=== PATIENT | female | born 1940 | race Caucasian/White ===

== ENCOUNTER 2018-03-09 16:09 | Emergency (ER) | payer MEDICARE, SELFPAY ==
[2018-03-09 16:10] VITALS: BP 137/68; PULSE 93; RESP 22; TEMP 36.7; O2SAT 99
--- NOTE | 2018-03-09 16:22 | DI.RAD.S_ITS ---
PROCEDURE: XR CHEST 1V INDICATIONS: chest pain TECHNIQUE: One view of the chest was acquired. COMPARISON: [facility], , CHEST 1 VIEW, 11/30/2016, 10:54. FINDINGS: Surgical changes and devices: None. Lungs and pleura: No pleural effusions or pneumothorax. Lungs are clear. Mediastinum: Mediastinal contours appear normal. Heart size is normal. Bones and chest wall: No suspicious bony lesions. Overlying soft tissues appear unremarkable. 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 IMPRESSION: No acute cardiopulmonary disease. Dictated by: Tono Chapa M.D. on 03/09/2018 at 16:50 Approved by: Tono Chapa M.D. on 03/09/2018 at 16:51
[2018-03-09 16:30] LABS: Add Manual Diff / Slide Review NO; Eosinophils Percent Auto 1.4 % (2-4); Hematocrit 38.7 % (36-46); Hemoglobin 12.9 g/dL (12.0-16.0); Mean Corpuscular HGB Conc 33.2 % (30-36); Mean Corpuscular Hemoglobin 32.1 PG (26-34); Mean Corpuscular Volume 96.6 fL (80-100); Monocytes Percent Auto 11.1 % (3-14); Neutrophils Absolute Auto 3600 /uL (3000-5900); Neutrophils Percent Auto 57.5 % (50-75); Platelet Count 200 X10^3/uL (150-400); Red Blood Cell Count 4.01 X10^6/uL (4.0-5.2); Red Cell Distribution Width 13.7 % (11.6-14.8); White Blood Cell Count 6.2 X10^3/uL (4.5-11.0)
[2018-03-09 16:37] LABS: Prothrombin Time 10.7 SECONDS (10.1-12.7)
[2018-03-09 16:40] LABS: PTT Partial Thromboplastin Tim 31 SECONDS (26.4-36.2)
[2018-03-09 16:41] LABS: Alanine Aminotransferase 30 IU/L (9-52); Albumin 4.2 g/dL (3.5-5.0); Albumin Globulin Ratio 1.3 (1.0-2.8); Alkaline Phosphatase 79 U/L (38-126); Aspartate Aminotransferase 28 IU/L (14-36); BUN Creatinine Ratio 43.3 (6-22); Bilirubin Total 0.4 mg/dL (0.2-1.3); Blood Urea Nitrogen 26 mg/dL (7-17); Calcium 9.4 mg/dL (8.4-10.2); Carbon Dioxide 27 mmol/L (22-32); Chloride 105 mmol/L (98-107); Creatine Kinase 51 U/L (30-135); Estimated Glomerular Filt Rate > 60.0 mL/min (>60); Globulin 3.2 g/dL (1.7-4.1); Glucose 125 mg/dL (80-110); HEMOLYSIS 19 (0-50); Lipase 194 U/L (23-300); Potassium 3.9 mmol/L (3.4-5.1); Sodium 144 mmol/L (137-145); Total Protein 7.4 g/dL (6.3-8.2)
[2018-03-09 16:57] LABS: Troponin I < 0.012 ng/mL (0.01-0.034)
[2018-03-09 17:02] VITALS: BP 137/68; PULSE 85; RESP 16; O2SAT 100
--- NOTE | 2018-03-09 17:22 | ED.CHESTPAIN ---
HPI - Chest Pain <ANTHONY Beyer - Last Filed: 03/09/18 22:29> General Chief Complaint: Chest Pain Stated Complaint: LEFT SHIDE SHOULDER PAIN TOWARS BACK GOT SWEATY Time Seen by Provider: 03/09/18 17:22 History of Present Illness HPI narrative: 77-year-old female here for complaint of having left-sided chest pain that radiates into her left shoulder over the past several days. She reports that the pain has been on and off. She reports no stressors for the pain. She denies any relievers of the pain. She is able to move her left arm without any complication and without causing pain. She denies any shortness of breath. She denies any fevers although she did state she had. She felt like she had a hot flash earlier today. No nausea or vomiting. He denies any trauma to the chest. She denies any do any strenuous activity. Patient is ambulatory into the emergency room. MD complaint: chest pain Onset (ago): day(s) Related Data Home Medications Medication Instructions Recorded Confirmed aspirin 81 mg PO Q DAY #0 07/10/11 03/09/18 cholecalciferol (vitamin D3) 2,000 unit PO DAILY #0 07/10/11 03/09/18 [Vitamin D3] fexofenadine-pseudoephedrine 1 tab PO Q DAY #0 07/10/11 03/09/18 [Senia-D 24 Hour] omeprazole 20 mg PO Q DAY #0 07/10/11 03/09/18 Women's One Daily 1 tab PO DAILY 03/09/18 03/09/18 vit C,E-Mj-uhgfa-lutein-zeaxan 2 cap PO BEDTIME 03/09/18 03/09/18 [PreserVision AREDS 2] Previous Rx's Medication Instructions Recorded metoprolol succinate [Toprol XL] 25 mg PO QDAY #90 tab 01/07/18 Allergies Allergy/AdvReac Type Severity Reaction Status Date / Time No Known Drug Allergies Allergy Verified 03/09/18 16:21 Review of Systems <ANTHONY Beyer - Last Filed: 03/09/18 22:29> Constitutional Denies chills, Denies fatigue, Denies fever(s), Denies lethargy and Denies weakness Eyes Denies change in vision, Denies eye discharge, Denies irritation and Denies loss of vision ENT Ears, Nose, Mouth, and Throat: Denies change in voice, Denies neck pain and Denies sore throat Cardiovascular Reports chest pain, Denies dyspnea and Denies dyspnea on exertion Respiratory Denies cough, Denies dyspnea, Denies dyspnea on exertion and Denies wheezing Gastrointestinal Gastrointestinal: Denies abdominal pain, Denies change in bowel habits, Denies diarrhea, Denies nausea and Denies vomiting Genitourinary Denies hematuria, Denies flank pain, Denies urinary incontinence and Denies urinary urgency Musculoskeletal Denies neck pain Integumentary/Breasts Denies pruritus, Denies erythema, Denies rash and Denies wounds Neurologic Denies confusion, Denies loss of vision and Denies weakness Psychiatric Denies anxiety, Denies confusion, Denies depression, Denies homicidal ideation and Denies suicidal ideation Endocrine Denies fatigue and Denies flushing Allergic/Immunologic Denies wheezing Exam <ANTHONY Beyer - Last Filed: 03/09/18 22:29> Initial Vital Signs Initial Vital Signs: Vital Signs Temperature 98.1 F 03/09/18 16:10 Pulse Rate 93 H 03/09/18 16:10 Respiratory Rate 22 03/09/18 16:10 Blood Pressure 137/68 H 03/09/18 16:10 Pulse Oximetry 99 03/09/18 16:10 Const General: cooperative and well developed Nutritional Appearance: well nourished Orientation: alert, awake, oriented x3 and not confused [facility] Mouth: oral mucosae normal and moist mucous membranes Eyes General: appearance normal, both eyes and all related structures Eyelids: eyelids normal Conjunctivae: conjunctivae normal Sclera: sclerae normal Pupils: PERRL EOM: EOM intact bilaterally Neck Neck: normal visual inspection, trachea midline, No lymphadenopathy, No midline deformity and No JVD Lymphatic: No lymphedema Chest Chest: normal inspection of the chest Resp Effort & Inspection: normal respiratory effort, able to speak in complete sentences, no respiratory distress and no use of accessory muscles Auscultation: clear to auscultation bilaterally, no rales, no rhonchi and no wheezes Cardio Rate: regular rate Rhythm: regular rhythm Heart Sounds: no click, no gallops, no murmurs and no rubs Pulses: normal peripheral pulses Skin General: no rashes or lesions noted, No jaundice and No petechiae <Rome Oswald MD - Last Filed: 03/12/18 05:45> Initial Vital Signs Initial Vital Signs: Vital Signs Temperature 98.1 F 03/09/18 16:10 Pulse Rate 93 H 03/09/18 16:10 Respiratory Rate 22 03/09/18 16:10 Blood Pressure 137/68 H 03/09/18 16:10 Pulse Oximetry 99 03/09/18 16:10 Scores <ANTHONY Beyer - Last Filed: 03/09/18 22:29> HEART Score Heart Score history: Moderately Suspicious Heart Score EKG: Normal Heart Score Age: > or = 65 years old Heart Score risk factors: 1-2 risk factors Heart Score troponin: < or = to normal limit Heart Score Total: 4 PERC Score Age greater than or equal to 50 years: Yes Heart rate greater than or equal to 100 bpm: No Room Air O2 Sat less than 95%: No Unilateral leg swelling: No Recent trauma or surgery: No Hemoptysis: No Prior PE or DVT: No Hormone Use: No Total PERC Score: 1 Wells' Criteria for PE Clinical signs and symptoms of PE: No PE is #1 Dx or equally likely: No Heart rate > 100: No Immobilization at least 3 days or surg in previous 4 weeks: No History of PE or DVT: No Hemoptysis: No Malignancy w/Treatment within 6 months or palliative: No Wells' PE Score total: 0 Course <ANTHONY Beyer - Last Filed: 03/09/18 22:29> Orders Ordered: ED Orders 03/09/18 16:20 Complete Blood Count AUTO DIFF Stat Comprehensive Metabolic Panel Stat Lipase Stat Partial Thromboplastin Time Stat Prothrombin Time INR Stat Troponin with CK Cardiac Panel Stat 03/09/18 16:22 XR chest 1V Stat EKG-12 Lead Stat 03/09/18 17:34 CT angio chest PE protocol Stat 03/09/18 18:27 Troponin with CK Cardiac Panel Stat Vital Signs - 8 hr 03/09/18 16:10 03/09/18 17:02 03/09/18 19:47 Temperature 98.1 F Pulse Rate 93 H 85 87 Respiratory Rate 22 16 20 Blood Pressure 137/68 H 135/73 H Blood Pressure [Left Arm] 137/68 H Pulse Oximetry 99 100 100 <Rome Oswald MD - Last Filed: 03/12/18 05:45> Orders Ordered: ED Orders 03/09/18 16:20 Complete Blood Count AUTO DIFF Stat Comprehensive Metabolic Panel Stat Lipase Stat Partial Thromboplastin Time Stat Prothrombin Time INR Stat Troponin with CK Cardiac Panel Stat 03/09/18 16:22 XR chest 1V Stat EKG-12 Lead Stat 03/09/18 17:34 CT angio chest PE protocol Stat 03/09/18 18:27 Troponin with CK Cardiac Panel Stat Vital Signs - 8 hr 03/09/18 16:10 03/09/18 17:02 03/09/18 19:47 Temperature 98.1 F Pulse Rate 93 H 85 87 Respiratory Rate 22 16 20 Blood Pressure 137/68 H 135/73 H Blood Pressure [Left Arm] 137/68 H Pulse Oximetry 99 100 100 MDM - Chest Pain <ANTHONY Beyer - Last Filed: 03/09/18 22:29> Lab Data Result diagrams: 03/09/18 16:20 03/09/18 16:20 Lab Results 03/09/18 03/09/18 03/09/18 Range/Units 16:20 16:20 16:20 WBC 6.2 (4.5-11.0) X10^3/uL RBC 4.01 (4.0-5.2) X10^6/uL Hgb 12.9 (12.0-16.0) g/dL Hct 38.7 (36-46) % MCV 96.6 (80-100) fL MCH 32.1 (26-34) PG MCHC 33.2 (30-36) % RDW 13.7 (11.6-14.8) % Plt Count 200 (150-400) X10^3/uL Neut % (Auto) 57.5 (50-75) % Lymph % (Auto) 29.0 (25-40) % [place] % (Auto) 11.1 (3-14) % Eos % (Auto) 1.4 L (2-4) % Baso % (Auto) 1.0 (0-2) % Neut # (Auto) 3600 (5834-7145) /uL PT 10.7 (10.1-12.7) SECONDS INR 1.0 (0.9-1.3) APTT 31 (26.4-36.2) SECONDS Sodium 144 (137-145) mmol/L Potassium 3.9 (3.4-5.1) mmol/L Chloride 105 (98-107) mmol/L Carbon Dioxide 27 (22-32) mmol/L BUN 26 H (7-17) mg/dL Creatinine 0.60 (0.52-1.04) mg/dL Estimated GFR > 60.0 (>60) mL/min BUN/Creatinine Ratio 43.3 H (6-22) Glucose 125 H (80-110) mg/dL Calcium 9.4 (8.4-10.2) mg/dL Total Bilirubin 0.4 (0.2-1.3) mg/dL AST 28 (14-36) IU/L ALT 30 (9-52) IU/L Alkaline Phosphatase 79 (38-126) U/L Total Creatine Kinase 51 (30-135) U/L Troponin I < 0.012 (0.01-0.034) ng/mL Total Protein 7.4 (6.3-8.2) g/dL Albumin 4.2 (3.5-5.0) g/dL Globulin 3.2 (1.7-4.1) g/dL Albumin/Globulin Ratio 1.3 (1.0-2.8) Lipase 194 (23-300) U/L /18/18 Range/Units 18:27 WBC (4.5-11.0) X10^3/uL RBC (4.0-5.2) X10^6/uL Hgb (12.0-16.0) g/dL Hct (36-46) % MCV (80-100) fL MCH (26-34) PG MCHC (30-36) % RDW (11.6-14.8) % Plt Count (150-400) X10^3/uL Neut % (Auto) (50-75) % Lymph % (Auto) (25-40) % [place] % (Auto) (3-14) % Eos % (Auto) (2-4) % Baso % (Auto) (0-2) % Neut # (Auto) (1077-7259) /uL PT (10.1-12.7) SECONDS INR (0.9-1.3) APTT (26.4-36.2) SECONDS Sodium (137-145) mmol/L Potassium (3.4-5.1) mmol/L Chloride (98-107) mmol/L Carbon Dioxide (22-32) mmol/L BUN (7-17) mg/dL Creatinine (0.52-1.04) mg/dL Estimated GFR (>60) mL/min BUN/Creatinine Ratio (6-22) Glucose (80-110) mg/dL Calcium (8.4-10.2) mg/dL Total Bilirubin (0.2-1.3) mg/dL AST (14-36) IU/L ALT (9-52) IU/L Alkaline Phosphatase (38-126) U/L Total Creatine Kinase 41 (30-135) U/L Troponin I < 0.012 (0.01-0.034) ng/mL Total Protein (6.3-8.2) g/dL Albumin (3.5-5.0) g/dL Globulin (1.7-4.1) g/dL Albumin/Globulin Ratio (1.0-2.8) Lipase (23-300) U/L Imaging Data Chest x-ray: Radiologist's impression: PROCEDURE: XR CHEST 1V INDICATIONS: chest pain TECHNIQUE: One view of the chest was acquired. COMPARISON: [facility], CR, CHEST 1 VIEW, 11/30/2016, 10:54. FINDINGS: Surgical changes and devices: None. Lungs and pleura: No pleural effusions or pneumothorax. Lungs are clear. Mediastinum: Mediastinal contours appear normal. Heart size is normal. Bones and chest wall: No suspicious bony lesions. Overlying soft tissues appear unremarkable. 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 IMPRESSION: No acute cardiopulmonary disease. Dictated by: Tono Chapa M.D. on 03/09/2018 at 16:50 Approved by: Tono Chapa M.D. on 03/09/2018 at 16:51 CT scan - chest: Radiologist's impression: PROCEDURE: CT ANGIO CHEST PE PROTOCOL INDICATIONS: chest pain TECHNIQUE: After the administration of intravenous contrast, 2 mm thick sections acquired from the pulmonary apices to the posterior costophrenic angles. 3-dimensional maximum intensity projection (MIP) coronal and sagittal reformats were then acquired through the thorax. For radiation dose reduction, the following was used: automated exposure control, adjustment of mA and/or kV according to patient size. COMPARISON: [facility], CT, PE STUDY (CTA CHEST), 06/27/2010, 11:18. [facility], CT, PE STUDY (CTA CHEST), 10/29/2015, 8:00. FINDINGS: Image quality: Excellent. Pulmonary arteries: Pulmonary arteries are normal in size, and demonstrate no intraluminal filling defects to suggest central pulmonary embolism. Lungs and pleura: Lungs are clear. A 3 mm diameter pulmonary nodule is present at the left lung base unchanged from 2010. No pleural effusions or pneumothorax. Central and peripheral airways are patent. Mediastinum: Heart size is normal, without pericardial effusion. No mediastinal or hilar adenopathy. Thoracic aorta is normal in caliber and enhancement. Scattered atheromatous calcifications are present at the thoracic arch. Esophagus is normal in caliber, without hiatal hernia. Bones and chest wall: No suspicious bony lesions. Ribs and thoracic spine appear intact throughout. Thyroid gland is unremarkable. No axillary or supraclavicular adenopathy. Abdomen: Visualized upper abdominal solid organs appear normal in the early arterial phase of enhancement. IMPRESSION: 1. No acute pulmonary embolus. 2. No radiographic findings to explain chest pain. Dictated by: Libby Cruz M.D. on 03/09/2018 at 18:13 Approved by: Libby Cruz M.D. on 03/09/2018 at 18:18 ECG Data Interpretation: EKG shows normal sinus rhythm with no ST elevation or depression. No ectopy. Ventricular rate of 90. Pr interval of 146. QRS duration is 76. QTC of 406 MDM Narrative Medical decision making narrative: Chest x-ray was obtained was negative for any acute findings. Patient's heart rate was at 95 and with metoprolol was concerned that she could be tachycardic so therefore PE protocol CT was obtained and was negative for any acute findings. Two sets of cardiac enzymes were obtained and were unremarkable. Other laboratory work was unremarkable. Signs and symptoms presents as muscle skeletal pain at the chest wall. However differential with other cardiac related issues such as angina are considered so therefore recommend follow up with primary care provider later this week for re-evaluation and discussion and consideration for further treatment options such as stress test and echocardiogram. For any worsening symptoms return to the emergency room. Use [id number] Tylenol Motrin as needed for any discomfort. <Rome Oswald MD - Last Filed: 03/12/18 05:45> Lab Data Lab Results 03/09/18 03/09/18 03/09/18 Range/Units 16:20 16:20 16:20 WBC 6.2 (4.5-11.0) X10^3/uL RBC 4.01 (4.0-5.2) X10^6/uL Hgb 12.9 (12.0-16.0) g/dL Hct 38.7 (36-46) % MCV 96.6 (80-100) fL MCH 32.1 (26-34) PG MCHC 33.2 (30-36) % RDW 13.7 (11.6-14.8) % Plt Count 200 (150-400) X10^3/uL Neut % (Auto) 57.5 (50-75) % Lymph % (Auto) 29.0 (25-40) % [place] % (Auto) 11.1 (3-14) % Eos % (Auto) 1.4 L (2-4) % Baso % (Auto) 1.0 (0-2) % Neut # (Auto) 3600 (7476-7653) /uL PT 10.7 (10.1-12.7) SECONDS INR 1.0 (0.9-1.3) APTT 31 (26.4-36.2) SECONDS Sodium 144 (137-145) mmol/L Potassium 3.9 (3.4-5.1) mmol/L Chloride 105 (98-107) mmol/L Carbon Dioxide 27 (22-32) mmol/L BUN 26 H (7-17) mg/dL Creatinine 0.60 (0.52-1.04) mg/dL Estimated GFR > 60.0 (>60) mL/min BUN/Creatinine Ratio 43.3 H (6-22) Glucose 125 H (80-110) mg/dL Calcium 9.4 (8.4-10.2) mg/dL Total Bilirubin 0.4 (0.2-1.3) mg/dL AST 28 (14-36) IU/L ALT 30 (9-52) IU/L Alkaline Phosphatase 79 (38-126) U/L Total Creatine Kinase 51 (30-135) U/L Troponin I < 0.012 (0.01-0.034) ng/mL Total Protein 7.4 (6.3-8.2) g/dL Albumin 4.2 (3.5-5.0) g/dL Globulin 3.2 (1.7-4.1) g/dL Albumin/Globulin Ratio 1.3 (1.0-2.8) Lipase 194 (23-300) U/L 03/09/18 Range/Units 18:27 WBC (4.5-11.0) X10^3/uL RBC (4.0-5.2) X10^6/uL Hgb (12.0-16.0) g/dL Hct (36-46) % MCV (80-100) fL MCH (26-34) PG MCHC (30-36) % RDW (11.6-14.8) % Plt Count (150-400) X10^3/uL Neut % (Auto) (50-75) % Lymph % (Auto) (25-40) % [place] % (Auto) (3-14) % Eos % (Auto) (2-4) % Baso % (Auto) (0-2) % Neut # (Auto) (5204-9488) /uL PT (10.1-12.7) SECONDS INR (0.9-1.3) APTT (26.4-36.2) SECONDS Sodium (137-145) mmol/L Potassium (3.4-5.1) mmol/L Chloride (98-107) mmol/L Carbon Dioxide (22-32) mmol/L BUN (7-17) mg/dL Creatinine (0.52-1.04) mg/dL Estimated GFR (>60) mL/min BUN/Creatinine Ratio (6-22) Glucose (80-110) mg/dL Calcium (8.4-10.2) mg/dL Total Bilirubin (0.2-1.3) mg/dL AST (14-36) IU/L ALT (9-52) IU/L Alkaline Phosphatase (38-126) U/L Total Creatine Kinase 41 (30-135) U/L Troponin I < 0.012 (0.01-0.034) ng/mL Total Protein (6.3-8.2) g/dL Albumin (3.5-5.0) g/dL Globulin (1.7-4.1) g/dL Albumin/Globulin Ratio (1.0-2.8) Lipase (23-300) U/L Discharge Plan Departure Patient Disposition: Home, Self-Care Clinical Impression: Chest pain Discharge Date/Time: 03/09/18 19:48 Interventions: ED Discharge Assessment Last Done: 03/09/18 19:47 Instructions: DI for Chest Pain Activity Restrictions/Additional Instructions: Laboratory results and imaging today were unremarkable. Signs and symptoms presents as muscle skeletal chest wall pain. He has [id number] Tylenol or Motrin as needed for any discomfort. Follow up with her primary care provider later this week for discussion of further evaluation to ensure it is not heart related such as stress test and/or echocardiogram. For any worsening symptoms return to the emergency room. Prescriptions: No Action omeprazole 20 MG capsule,delayed release(DR/EC) 20 mg PO Q DAY Qty: 0 RF: 0 fexofenadine-pseudoephedrine [Senia-D 24 Hour] 180-240 mg Tablet Extended Release 24 Hr 1 tab PO Q DAY Qty: 0 RF: 0 aspirin 81 mg Tablet,Delayed Release (Dr/Ec) 81 mg PO Q DAY Qty: 0 RF: 0 cholecalciferol (vitamin D3) [Vitamin D3] 2,000 unit Capsule 2,000 unit PO DAILY Qty: 0 RF: 0 metoprolol succinate [Toprol XL] 25 MG tablet extended release 24 hr 25 mg PO QDAY Qty: 90 RF: 3 vit C,P-Qy-mbisn-lutein-zeaxan [PreserVision AREDS 2] 157-392-05-1 oc-sqje-nj-mg Capsule 2 cap PO BEDTIME RF: 0 Women's One Daily 1 tab PO DAILY RF: 0 Referrals: Mary Haas MD [Primary Care Provider] - <Rome Oswald MD - Last Filed: 03/12/18 05:45> Cosign ED Attending Cosignature Attestation: The PA/TANNING [employer] functioned independently for the care of this pt, I was available, but not asked to participate in care. I am unable to determine appropriateness of management without personally examining the pt.
--- NOTE | 2018-03-09 17:26 | ED_ITS ---
HPI - Chest Pain <ANTHONY Beyer - Last Filed: 03/09/18 22:29> General Chief Complaint: Chest Pain Stated Complaint: LEFT SHIDE SHOULDER PAIN TOWARS BACK GOT SWEATY Time Seen by Provider: 03/09/18 17:22 History of Present Illness HPI narrative: 77-year-old female here for complaint of having left-sided chest pain that radiates into her left shoulder over the past several days. She reports that the pain has been on and off. She reports no stressors for the pain. She denies any relievers of the pain. She is able to move her left arm without any complication and without causing pain. She denies any shortness of breath. She denies any fevers although she did state she had. She felt like she had a hot flash earlier today. No nausea or vomiting. He denies any trauma to the chest. She denies any do any strenuous activity. Patient is ambulatory into the emergency room. MD complaint: chest pain Onset (ago): day(s) Related Data Home Medications Medication Instructions Recorded Confirmed aspirin 81 mg PO Q DAY #0 07/10/11 03/09/18 cholecalciferol (vitamin D3) 2,000 unit PO DAILY #0 07/10/11 03/09/18 [Vitamin D3] fexofenadine-pseudoephedrine 1 tab PO Q DAY #0 07/10/11 03/09/18 [Senia-D 24 Hour] omeprazole 20 mg PO Q DAY #0 07/10/11 03/09/18 Women's One Daily 1 tab PO DAILY 03/09/18 03/09/18 vit C,S-Jw-jkjbu-lutein-zeaxan 2 cap PO BEDTIME 03/09/18 03/09/18 [PreserVision AREDS 2] Previous Rx's Medication Instructions Recorded metoprolol succinate [Toprol XL] 25 mg PO QDAY #90 tab 01/07/18 Allergies Allergy/AdvReac Type Severity Reaction Status Date / Time No Known Drug Allergies Allergy Verified 03/09/18 16:21 Review of Systems <ANTHONY Beyer - Last Filed: 03/09/18 22:29> Constitutional Denies chills, Denies fatigue, Denies fever(s), Denies lethargy and Denies weakness Eyes Denies change in vision, Denies eye discharge, Denies irritation and Denies loss of vision ENT Ears, Nose, Mouth, and Throat: Denies change in voice, Denies neck pain and Denies sore throat Cardiovascular Reports chest pain, Denies dyspnea and Denies dyspnea on exertion Respiratory Denies cough, Denies dyspnea, Denies dyspnea on exertion and Denies wheezing Gastrointestinal Gastrointestinal: Denies abdominal pain, Denies change in bowel habits, Denies diarrhea, Denies nausea and Denies vomiting Genitourinary Denies hematuria, Denies flank pain, Denies urinary incontinence and Denies urinary urgency Musculoskeletal Denies neck pain Integumentary/Breasts Denies pruritus, Denies erythema, Denies rash and Denies wounds Neurologic Denies confusion, Denies loss of vision and Denies weakness Psychiatric Denies anxiety, Denies confusion, Denies depression, Denies homicidal ideation and Denies suicidal ideation Endocrine Denies fatigue and Denies flushing Allergic/Immunologic Denies wheezing Exam <ANTHONY Beyer - Last Filed: 03/09/18 22:29> Initial Vital Signs Initial Vital Signs: Vital Signs Temperature 98.1 F 03/09/18 16:10 Pulse Rate 93 H 03/09/18 16:10 Respiratory Rate 22 03/09/18 16:10 Blood Pressure 137/68 H 03/09/18 16:10 Pulse Oximetry 99 03/09/18 16:10 Const General: cooperative and well developed Nutritional Appearance: well nourished Orientation: alert, awake, oriented x3 and not confused [facility] Mouth: oral mucosae normal and moist mucous membranes Eyes General: appearance normal, both eyes and all related structures Eyelids: eyelids normal Conjunctivae: conjunctivae normal Sclera: sclerae normal Pupils: PERRL EOM: EOM intact bilaterally Neck Neck: normal visual inspection, trachea midline, No lymphadenopathy, No midline deformity and No JVD Lymphatic: No lymphedema Chest Chest: normal inspection of the chest Resp Effort & Inspection: normal respiratory effort, able to speak in complete sentences, no respiratory distress and no use of accessory muscles Auscultation: clear to auscultation bilaterally, no rales, no rhonchi and no wheezes Cardio Rate: regular rate Rhythm: regular rhythm Heart Sounds: no click, no gallops, no murmurs and no rubs Pulses: normal peripheral pulses Skin General: no rashes or lesions noted, No jaundice and No petechiae <Rome Oswald MD - Last Filed: 03/12/18 05:45> Initial Vital Signs Initial Vital Signs: Vital Signs Temperature 98.1 F 03/09/18 16:10 Pulse Rate 93 H 03/09/18 16:10 Respiratory Rate 22 03/09/18 16:10 Blood Pressure 137/68 H 03/09/18 16:10 Pulse Oximetry 99 03/09/18 16:10 Scores <ANTHONY Beyer - Last Filed: 03/09/18 22:29> HEART Score Heart Score history: Moderately Suspicious Heart Score EKG: Normal Heart Score Age: > or = 65 years old Heart Score risk factors: 1-2 risk factors Heart Score troponin: < or = to normal limit Heart Score Total: 4 PERC Score Age greater than or equal to 50 years: Yes Heart rate greater than or equal to 100 bpm: No Room Air O2 Sat less than 95%: No Unilateral leg swelling: No Recent trauma or surgery: No Hemoptysis: No Prior PE or DVT: No Hormone Use: No Total PERC Score: 1 Wells' Criteria for PE Clinical signs and symptoms of PE: No PE is #1 Dx or equally likely: No Heart rate > 100: No Immobilization at least 3 days or surg in previous 4 weeks: No History of PE or DVT: No Hemoptysis: No Malignancy w/Treatment within 6 months or palliative: No Wells' PE Score total: 0 Course <ANTHONY Beyer - Last Filed: 03/09/18 22:29> Orders Ordered: ED Orders 03/09/18 16:20 Complete Blood Count AUTO DIFF Stat Comprehensive Metabolic Panel Stat Lipase Stat Partial Thromboplastin Time Stat Prothrombin Time INR Stat Troponin with CK Cardiac Panel Stat 03/09/18 16:22 XR chest 1V Stat EKG-12 Lead Stat 03/09/18 17:34 CT angio chest PE protocol Stat 03/09/18 18:27 Troponin with CK Cardiac Panel Stat Vital Signs - 8 hr 03/09/18 16:10 03/09/18 17:02 03/09/18 19:47 Temperature 98.1 F Pulse Rate 93 H 85 87 Respiratory Rate 22 16 20 Blood Pressure 137/68 H 135/73 H Blood Pressure [Left Arm] 137/68 H Pulse Oximetry 99 100 100 <Rome Oswald MD - Last Filed: 03/12/18 05:45> Orders Ordered: ED Orders 03/09/18 16:20 Complete Blood Count AUTO DIFF Stat Comprehensive Metabolic Panel Stat Lipase Stat Partial Thromboplastin Time Stat Prothrombin Time INR Stat Troponin with CK Cardiac Panel Stat 03/09/18 16:22 XR chest 1V Stat EKG-12 Lead Stat 03/09/18 17:34 CT angio chest PE protocol Stat 03/09/18 18:27 Troponin with CK Cardiac Panel Stat Vital Signs - 8 hr 03/09/18 16:10 03/09/18 17:02 03/09/18 19:47 Temperature 98.1 F Pulse Rate 93 H 85 87 Respiratory Rate 22 16 20 Blood Pressure 137/68 H 135/73 H Blood Pressure [Left Arm] 137/68 H Pulse Oximetry 99 100 100 MDM - Chest Pain <ANTHONY Beyer - Last Filed: 03/09/18 22:29> Lab Data Result diagrams: 03/09/18 16:20 03/09/18 16:20 Lab Results 03/09/18 03/09/18 03/09/18 Range/Units 16:20 16:20 16:20 WBC 6.2 (4.5-11.0) X10^3/uL RBC 4.01 (4.0-5.2) X10^6/uL Hgb 12.9 (12.0-16.0) g/dL Hct 38.7 (36-46) % MCV 96.6 (80-100) fL MCH 32.1 (26-34) PG MCHC 33.2 (30-36) % RDW 13.7 (11.6-14.8) % Plt Count 200 (150-400) X10^3/uL Neut % (Auto) 57.5 (50-75) % Lymph % (Auto) 29.0 (25-40) % Norman % (Auto) 11.1 (3-14) % Eos % (Auto) 1.4 L (2-4) % Baso % (Auto) 1.0 (0-2) % Neut # (Auto) 3600 (3506-3356) /uL PT 10.7 (10.1-12.7) SECONDS INR 1.0 (0.9-1.3) APTT 31 (26.4-36.2) SECONDS Sodium 144 (137-145) mmol/L Potassium 3.9 (3.4-5.1) mmol/L Chloride 105 (98-107) mmol/L Carbon Dioxide 27 (22-32) mmol/L BUN 26 H (7-17) mg/dL Creatinine 0.60 (0.52-1.04) mg/dL Estimated GFR > 60.0 (>60) mL/min BUN/Creatinine Ratio 43.3 H (6-22) Glucose 125 H (80-110) mg/dL Calcium 9.4 (8.4-10.2) mg/dL Total Bilirubin 0.4 (0.2-1.3) mg/dL AST 28 (14-36) IU/L ALT 30 (9-52) IU/L Alkaline Phosphatase 79 (38-126) U/L Total Creatine Kinase 51 (30-135) U/L Troponin I < 0.012 (0.01-0.034) ng/mL Total Protein 7.4 (6.3-8.2) g/dL Albumin 4.2 (3.5-5.0) g/dL Globulin 3.2 (1.7-4.1) g/dL Albumin/Globulin Ratio 1.3 (1.0-2.8) Lipase 194 (23-300) U/L /18/18 Range/Units 18:27 WBC (4.5-11.0) X10^3/uL RBC (4.0-5.2) X10^6/uL Hgb (12.0-16.0) g/dL Hct (36-46) % MCV (80-100) fL MCH (26-34) PG MCHC (30-36) % RDW (11.6-14.8) % Plt Count (150-400) X10^3/uL Neut % (Auto) (50-75) % Lymph % (Auto) (25-40) % Norman % (Auto) (3-14) % Eos % (Auto) (2-4) % Baso % (Auto) (0-2) % Neut # (Auto) (3887-2607) /uL PT (10.1-12.7) SECONDS INR (0.9-1.3) APTT (26.4-36.2) SECONDS Sodium (137-145) mmol/L Potassium (3.4-5.1) mmol/L Chloride (98-107) mmol/L Carbon Dioxide (22-32) mmol/L BUN (7-17) mg/dL Creatinine (0.52-1.04) mg/dL Estimated GFR (>60) mL/min BUN/Creatinine Ratio (6-22) Glucose (80-110) mg/dL Calcium (8.4-10.2) mg/dL Total Bilirubin (0.2-1.3) mg/dL AST (14-36) IU/L ALT (9-52) IU/L Alkaline Phosphatase (38-126) U/L Total Creatine Kinase 41 (30-135) U/L Troponin I < 0.012 (0.01-0.034) ng/mL Total Protein (6.3-8.2) g/dL Albumin (3.5-5.0) g/dL Globulin (1.7-4.1) g/dL Albumin/Globulin Ratio (1.0-2.8) Lipase (23-300) U/L Imaging Data Chest x-ray: Radiologist's impression: PROCEDURE: XR CHEST 1V INDICATIONS: chest pain TECHNIQUE: One view of the chest was acquired. COMPARISON: [facility], CR, CHEST 1 VIEW, 11/30/2016, 10:54. FINDINGS: Surgical changes and devices: None. Lungs and pleura: No pleural effusions or pneumothorax. Lungs are clear. Mediastinum: Mediastinal contours appear normal. Heart size is normal. Bones and chest wall: No suspicious bony lesions. Overlying soft tissues appear unremarkable. 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 IMPRESSION: No acute cardiopulmonary disease. Dictated by: Tono Chapa M.D. on 03/09/2018 at 16:50 Approved by: Tono Chapa M.D. on 03/09/2018 at 16:51 CT scan - chest: Radiologist's impression: PROCEDURE: CT ANGIO CHEST PE PROTOCOL INDICATIONS: chest pain TECHNIQUE: After the administration of intravenous contrast, 2 mm thick sections acquired from the pulmonary apices to the posterior costophrenic angles. 3-dimensional maximum intensity projection (MIP) coronal and sagittal reformats were then acquired through the thorax. For radiation dose reduction, the following was used: automated exposure control, adjustment of mA and/or kV according to patient size. COMPARISON: [facility], CT, PE STUDY (CTA CHEST), 06/27/2010, 11:18. [facility], CT, PE STUDY (CTA CHEST), 10/29/2015, 8:00. FINDINGS: Image quality: Excellent. Pulmonary arteries: Pulmonary arteries are normal in size, and demonstrate no intraluminal filling defects to suggest central pulmonary embolism. Lungs and pleura: Lungs are clear. A 3 mm diameter pulmonary nodule is present at the left lung base unchanged from 2010. No pleural effusions or pneumothorax. Central and peripheral airways are patent. Mediastinum: Heart size is normal, without pericardial effusion. No mediastinal or hilar adenopathy. Thoracic aorta is normal in caliber and enhancement. Scattered atheromatous calcifications are present at the thoracic arch. Esophagus is normal in caliber, without hiatal hernia. Bones and chest wall: No suspicious bony lesions. Ribs and thoracic spine appear intact throughout. Thyroid gland is unremarkable. No axillary or supraclavicular adenopathy. Abdomen: Visualized upper abdominal solid organs appear normal in the early arterial phase of enhancement. IMPRESSION: 1. No acute pulmonary embolus. 2. No radiographic findings to explain chest pain. Dictated by: Libby Cruz M.D. on 03/09/2018 at 18:13 Approved by: Libby Cruz M.D. on 03/09/2018 at 18:18 ECG Data Interpretation: EKG shows normal sinus rhythm with no ST elevation or depression. No ectopy. Ventricular rate of 90. Pr interval of 146. QRS duration is 76. QTC of 406 MDM Narrative Medical decision making narrative: Chest x-ray was obtained was negative for any acute findings. Patient's heart rate was at 95 and with metoprolol was concerned that she could be tachycardic so therefore PE protocol CT was obtained and was negative for any acute findings. Two sets of cardiac enzymes were obtained and were unremarkable. Other laboratory work was unremarkable. Signs and symptoms presents as muscle skeletal pain at the chest wall. However differential with other cardiac related issues such as angina are considered so therefore recommend follow up with primary care provider later this week for re- evaluation and discussion and consideration for further treatment options such as stress test and echocardiogram. For any worsening symptoms return to the emergency room. Use [id number] Tylenol Motrin as needed for any discomfort. <Rome Oswald MD - Last Filed: 03/12/18 05:45> Lab Data Lab Results 03/09/18 03/09/18 03/09/18 Range/Units 16:20 16:20 16:20 WBC 6.2 (4.5-11.0) X10^3/uL RBC 4.01 (4.0-5.2) X10^6/uL Hgb 12.9 (12.0-16.0) g/dL Hct 38.7 (36-46) % MCV 96.6 (80-100) fL MCH 32.1 (26-34) PG MCHC 33.2 (30-36) % RDW 13.7 (11.6-14.8) % Plt Count 200 (150-400) X10^3/uL Neut % (Auto) 57.5 (50-75) % Lymph % (Auto) 29.0 (25-40) % Norman % (Auto) 11.1 (3-14) % Eos % (Auto) 1.4 L (2-4) % Baso % (Auto) 1.0 (0-2) % Neut # (Auto) 3600 (2290-5685) /uL PT 10.7 (10.1-12.7) SECONDS INR 1.0 (0.9-1.3) APTT 31 (26.4-36.2) SECONDS Sodium 144 (137-145) mmol/L Potassium 3.9 (3.4-5.1) mmol/L Chloride 105 (98-107) mmol/L Carbon Dioxide 27 (22-32) mmol/L BUN 26 H (7-17) mg/dL Creatinine 0.60 (0.52-1.04) mg/dL Estimated GFR > 60.0 (>60) mL/min BUN/Creatinine Ratio 43.3 H (6-22) Glucose 125 H (80-110) mg/dL Calcium 9.4 (8.4-10.2) mg/dL Total Bilirubin 0.4 (0.2-1.3) mg/dL AST 28 (14-36) IU/L ALT 30 (9-52) IU/L Alkaline Phosphatase 79 (38-126) U/L Total Creatine Kinase 51 (30-135) U/L Troponin I < 0.012 (0.01-0.034) ng/mL Total Protein 7.4 (6.3-8.2) g/dL Albumin 4.2 (3.5-5.0) g/dL Globulin 3.2 (1.7-4.1) g/dL Albumin/Globulin Ratio 1.3 (1.0-2.8) Lipase 194 (23-300) U/L 03/09/18 Range/Units 18:27 WBC (4.5-11.0) X10^3/uL RBC (4.0-5.2) X10^6/uL Hgb (12.0-16.0) g/dL Hct (36-46) % MCV (80-100) fL MCH (26-34) PG MCHC (30-36) % RDW (11.6-14.8) % Plt Count (150-400) X10^3/uL Neut % (Auto) (50-75) % Lymph % (Auto) (25-40) % Norman % (Auto) (3-14) % Eos % (Auto) (2-4) % Baso % (Auto) (0-2) % Neut # (Auto) (4895-8953) /uL PT (10.1-12.7) SECONDS INR (0.9-1.3) APTT (26.4-36.2) SECONDS Sodium (137-145) mmol/L Potassium (3.4-5.1) mmol/L Chloride (98-107) mmol/L Carbon Dioxide (22-32) mmol/L BUN (7-17) mg/dL Creatinine (0.52-1.04) mg/dL Estimated GFR (>60) mL/min BUN/Creatinine Ratio (6-22) Glucose (80-110) mg/dL Calcium (8.4-10.2) mg/dL Total Bilirubin (0.2-1.3) mg/dL AST (14-36) IU/L ALT (9-52) IU/L Alkaline Phosphatase (38-126) U/L Total Creatine Kinase 41 (30-135) U/L Troponin I < 0.012 (0.01-0.034) ng/mL Total Protein (6.3-8.2) g/dL Albumin (3.5-5.0) g/dL Globulin (1.7-4.1) g/dL Albumin/Globulin Ratio (1.0-2.8) Lipase (23-300) U/L Discharge Plan Departure Patient Disposition: Home, Self-Care Clinical Impression: Chest pain Discharge Date/Time: 03/09/18 19:48 Interventions: ED Discharge Assessment Last Done: 03/09/18 19:47 Instructions: DI for Chest Pain Activity Restrictions/Additional Instructions: Laboratory results and imaging today were unremarkable. Signs and symptoms presents as muscle skeletal chest wall pain. He has [id number] Tylenol or Motrin as needed for any discomfort. Follow up with her primary care provider later this week for discussion of further evaluation to ensure it is not heart related such as stress test and/or echocardiogram. For any worsening symptoms return to the emergency room. Prescriptions: No Action omeprazole 20 MG capsule,delayed release(DR/EC) 20 mg PO Q DAY Qty: 0 RF: 0 fexofenadine-pseudoephedrine [Senia-D 24 Hour] 180-240 mg Tablet Extended Release 24 Hr 1 tab PO Q DAY Qty: 0 RF: 0 aspirin 81 mg Tablet,Delayed Release (Dr/Ec) 81 mg PO Q DAY Qty: 0 RF: 0 cholecalciferol (vitamin D3) [Vitamin D3] 2,000 unit Capsule 2,000 unit PO DAILY Qty: 0 RF: 0 metoprolol succinate [Toprol XL] 25 MG tablet extended release 24 hr 25 mg PO QDAY Qty: 90 RF: 3 vit C,T-Ib-esbcc-lutein-zeaxan [PreserVision AREDS 2] 793-015-76-1 mg-unit-mg- mg Capsule 2 cap PO BEDTIME RF: 0 Women's One Daily 1 tab PO DAILY RF: 0 Referrals: Mary Haas MD [Primary Care Provider] - <Rome Oswald MD - Last Filed: 03/12/18 05:45> Cosign ED Attending Cosignature Attestation: The PA/GRINDER CHIPPER functioned independently for the care of this pt, I was available, but not asked to participate in care. I am unable to determine appropriateness of management without personally examining the pt.
--- NOTE | 2018-03-09 17:34 | DI.CT.S_ITS ---
PROCEDURE: CT ANGIO CHEST PE PROTOCOL INDICATIONS: chest pain TECHNIQUE: After the administration of intravenous contrast, 2 mm thick sections acquired from the pulmonary apices to the posterior costophrenic angles. 3-dimensional maximum intensity projection (MIP) coronal and sagittal reformats were then acquired through the thorax. For radiation dose reduction, the following was used: automated exposure control, adjustment of mA and/or kV according to patient size. COMPARISON: [facility], CT, PE STUDY (CTA CHEST), 06/27/2010, 11:18. [facility], CT, PE STUDY (CTA CHEST), 10/29/2015, 8:00. FINDINGS: Image quality: Excellent. Pulmonary arteries: Pulmonary arteries are normal in size, and demonstrate no intraluminal filling defects to suggest central pulmonary embolism. Lungs and pleura: Lungs are clear. A 3 mm diameter pulmonary nodule is present at the left lung base unchanged from 2009. No pleural effusions or pneumothorax. Central and peripheral airways are patent. Mediastinum: Heart size is normal, without pericardial effusion. No mediastinal or hilar adenopathy. Thoracic aorta is normal in caliber and enhancement. Scattered atheromatous calcifications are present at the thoracic arch. Esophagus is normal in caliber, without hiatal hernia. Bones and chest wall: No suspicious bony lesions. Ribs and thoracic spine appear intact throughout. Thyroid gland is unremarkable. No axillary or supraclavicular adenopathy. Abdomen: Visualized upper abdominal solid organs appear normal in the early arterial phase of enhancement. IMPRESSION: 1. No acute pulmonary embolus. 2. No radiographic findings to explain chest pain. Dictated by: Libby Cruz M.D. on 03/09/2018 at 18:13 Approved by: Libby Cruz M.D. on 03/09/2018 at 18:18
[2018-03-09 19:12] LABS: Creatine Kinase 41 U/L (30-135)
[2018-03-09 19:27] LABS: Troponin I < 0.012 ng/mL (0.01-0.034)
[2018-03-09 19:47] VITALS: BP 135/73; PULSE 87; RESP 20; O2SAT 100
== END 2018-03-09 19:48 | disposition home or self-care (01) ==
PROVIDERS: Emergency Medicine; Emergency Provider Nurse Practitioner Family; Family Provider Family Medicine; PCP Family Medicine
DX: R07.89 Other chest pain (principal)
CPT/HCPCS: 36591; 71045; 71275; 80053; 82550; 82553; 83690; 84484; 85025; 85610; 85730; 93005; 93010; 99282; 99285; Q9967

== ENCOUNTER → 2018-11-12 12:54 | Outpatient (CLI) | payer MEDICARE, SELFPAY | PROVIDERS: PCP Student in an Organized Health Care Education/Training Program; Visit Provider Student in an Organized Health Care Education/Training Program | DX: Z13.820 Encounter for screening for osteoporosis (principal); M85.851 Other specified disorders of bone density and structure, right thigh; Z78.0 Asymptomatic menopausal state | CPT/HCPCS: 77080 ==

== ENCOUNTER → 2018-12-11 11:55 | Outpatient (CLI) | payer MEDICARE, SELFPAY ==
--- NOTE | 2018-12-11 | DI.MG.S_ITS ---
BILATERAL DIGITAL SCREENING MAMMOGRAM 3D/2D WITH CAD: 12/11/2018 CLINICAL: Routine screening. Comparison is made to exams dated: 04/18/2017 mammogram, 01/04/2016 mammogram, and 08/26/2014 mammogram - [facility]. There are scattered fibroglandular elements in both breasts. Current study was also evaluated with a Computer Aided Detection (CAD) system. There are grouped calcifications in the right breast at 6 o'clock middle depth. No other significant masses, calcifications, or other findings are seen in either breast. IMPRESSION: INCOMPLETE: NEEDS ADDITIONAL IMAGING EVALUATION The grouped calcifications in the right breast are indeterminate. Additional views with possible ultrasound are recommended. This exam was interpreted at Station ID: [id number]. NOTE: For mammograms, a report in lay terms will be sent to the patient. Approximately 15% of breast malignancies will not be visualized mammographically. In the management of a palpable breast mass, a negative mammogram must not discourage biopsy of a clinically suspicious lesion. Electronically Signed By: Olivier Hua M.D. ecl/:12/11/2018 18:55:36 letter sent: Additional Imaging Needed ACR BI-RADS Category 0: Incomplete [id number]
== END ==
PROVIDERS: PCP Student in an Organized Health Care Education/Training Program; Visit Provider Student in an Organized Health Care Education/Training Program
DX: Z12.31 Encounter for screening mammogram for malignant neoplasm of breast (principal)
CPT/HCPCS: 77063; 77067

== ENCOUNTER → 2018-12-31 13:08 | Outpatient (CLI) | payer MEDICARE, SELFPAY ==
--- NOTE | 2018-12-31 | DI.MG.S_ITS ---
UNILATERAL RIGHT DIGITAL DIAGNOSTIC MAMMOGRAM 3D/2D WITH ADDITIONAL VIEWS: 12/31/2018 CLINICAL: Additional evaluation requested from prior study. Comparison is made to exams dated: 12/11/2018 mammogram, 04/18/2017 mammogram, and 01/04/2016 mammogram - [facility]. There are scattered fibroglandular elements in right breast. There are 0.4 cm grouped punctate round calcifications in the right breast at 6 o'clock middle depth. These are seen in additional views. There is a possible associated oval equal density asymmetry associated with these calcifications. No other significant masses or calcifications are seen in the breast. IMPRESSION: INCOMPLETE: NEEDS ADDITIONAL IMAGING EVALUATION The 0.4 cm grouped punctate round calcifications in the right breast with possible associated oval asymmetry are indeterminate. An ultrasound is recommended which will immediately follow this study. This exam was interpreted at Station ID: [id number]. NOTE: For mammograms, a report in lay terms will be sent to the patient. Approximately 15% of breast malignancies will not be visualized mammographically. In the management of a palpable breast mass, a negative mammogram must not discourage biopsy of a clinically suspicious lesion. Electronically Signed By: Jason Wiggins M.D. aty/:12/31/2018 14:14:03 ACR BI-RADS Category 0: Incomplete [id number]
--- NOTE | 2018-12-31 13:10 | DI.US.S_ITS ---
ULTRASOUND OF RIGHT BREAST: 12/31/2018 CLINICAL: Patient returns today to evaluate a density in the right breast. Comparison is made to exams dated: 12/31/2018 mammogram, 12/11/2018 mammogram, 04/18/2017 mammogram, 01/04/2016 mammogram, 08/26/2014 mammogram, and 06/07/2013 mammogram - [facility]. Color flow and Doppler ultrasound of the right breast were performed. Vaz scale images of the real-time examination were reviewed. There is 0.3 cm x 0.2 cm x 0.3 cm wider than tall oval mass with a circumscribed margin in the right breast at 6 o'clock middle depth 2 cm from the nipple. This correlates with mammography findings. There are internal calcifications as noted on comparison mammogram. IMPRESSION: PROBABLY BENIGN The 0.3 cm x 0.2 cm x 0.3 cm wider than tall oval mass in the right breast is probably benign. A follow-up mammogram in 6 months is recommended to demonstrate stability. Findings and recommendations were discussed with the patient during today's visit. This exam was interpreted at Station ID: [id number]. Electronically Signed By: Jason Wiggins M.D. aty/:01/01/2019 21:54:48 letter sent: Followup Recommended Ultrasound BI-RADS: 3 Probably benign
== END ==
PROVIDERS: PCP Student in an Organized Health Care Education/Training Program; Visit Provider Student in an Organized Health Care Education/Training Program
DX: R92.8 Other abnormal and inconclusive findings on diagnostic imaging of breast (principal); R92.1 Mammographic calcification found on diagnostic imaging of breast; N63.10 Unspecified lump in the right breast, unspecified quadrant
CPT/HCPCS: 76642; 77065; G0279

== ENCOUNTER → 2019-06-28 12:41 | Outpatient (CLI) | payer MEDICARE, SELFPAY ==
--- NOTE | 2019-06-28 12:44 | DI.MG.S_ITS ---
UNILATERAL RIGHT DIGITAL DIAGNOSTIC MAMMOGRAM 3D/2D SHORT-TERM FOLLOW-UP: 06/28/2019 CLINICAL: Patient returns for a 6 month follow up of the right breast. Comparison is made to exams dated: 12/31/2018 mammogram, 12/11/2018 mammogram, and 04/18/2017 mammogram - [facility]. There are scattered fibroglandular elements in right breast. There are 0.4 cm grouped punctate round calcifications in the right breast at 6 o'clock middle depth. These demonstrate no significant change. No other significant masses or calcifications are seen in the breast. IMPRESSION: PROBABLY BENIGN The 0.4 cm grouped punctate round calcifications in the right breast are stable and probably benign. A follow-up bilateral mammogram in 6 months with additional views of the right breast is recommended to demonstrate continued stability. This exam was interpreted at Station ID: [id number]. NOTE: For mammograms, a report in lay terms will be sent to the patient. Approximately 15% of breast malignancies will not be visualized mammographically. In the management of a palpable breast mass, a negative mammogram must not discourage biopsy of a clinically suspicious lesion. Electronically Signed By: Jason Wiggins M.D. aty/:06/28/2019 13:30:44 letter sent: Followup Recommended ACR BI-RADS Category 3: Probably benign [id number]
== END ==
PROVIDERS: PCP Student in an Organized Health Care Education/Training Program; Visit Provider Student in an Organized Health Care Education/Training Program
DX: R92.8 Other abnormal and inconclusive findings on diagnostic imaging of breast (principal); R92.1 Mammographic calcification found on diagnostic imaging of breast
CPT/HCPCS: 77065; G0279

== ENCOUNTER → 2019-07-26 07:05 | Outpatient (CLI) | payer MEDICARE, SELFPAY ==
[2019-07-26 07:42] LABS: Hemoglobin 12.6 g/dL (12.0-16.0); Mean Corpuscular HGB Conc 33.2 % (30-36); Mean Corpuscular Hemoglobin 32.4 PG (26-34); Mean Corpuscular Volume 97.5 fL (80-100); Platelet Count 212 X10^3/uL (150-400); Red Cell Distribution Width 13.8 % (11.6-14.8); White Blood Cell Count 4.5 X10^3/uL (4.5-11.0)
[2019-07-26 07:55] LABS: BUN Creatinine Ratio 43.3 (6-22); Blood Urea Nitrogen 26 mg/dL (7-17); Calcium 9.3 mg/dL (8.4-10.2); Carbon Dioxide 31 mmol/L (22-32); Chloride 105 mmol/L (98-107); Estimated Glomerular Filt Rate > 60.0 mL/min (>60); Glucose 97 mg/dL (80-110); HEMOLYSIS < 15 (0-50); Potassium 4.4 mmol/L (3.4-5.1); Sodium 143 mmol/L (137-145)
[2019-07-26 08:46] LABS: Vitamin D 25 Hydroxy (D3) 40.8 ng/mL (30.0-100.0)
== END ==
PROVIDERS: PCP Student in an Organized Health Care Education/Training Program; Visit Provider Student in an Organized Health Care Education/Training Program
DX: Z01.810 Encounter for preprocedural cardiovascular examination (principal); I10 Essential (primary) hypertension; Z79.899 Other long term (current) drug therapy
CPT/HCPCS: 36415; 80048; 82306; 85027

== ENCOUNTER → 2020-03-23 09:03 | Outpatient (CLI) | payer MEDICARE, SELFPAY ==
--- NOTE | 2020-03-23 09:06 | DI.MG.S_ITS ---
BILATERAL DIGITAL DIAGNOSTIC MAMMOGRAM 3D/2D SHORT-TERM FOLLOW-UP: 03/23/2020 CLINICAL: Short follow up. Comparison is made to exams dated: 06/28/2019 mammogram, 12/31/2018 ultrasound, 12/31/2018 mammogram, 12/11/2018 mammogram, 04/18/2017 mammogram, and 01/04/2016 mammogram - [facility]. There are scattered fibroglandular elements in both breasts. There is a stable 0.3 cm round mass with a circumscribed margin and grouped punctate round calcifications in the right breast at 6 o'clock middle depth. This correlates with prior ultrasound findings. No other significant masses, calcifications, or other findings are seen in either breast. IMPRESSION: PROBABLY BENIGN Stable 0.3 cm round mass with grouped calcifications in the right breast 6:00 o'clock is probably benign. A follow-up mammogram and possible ultrasound in 6 months is recommended to demonstrate stability. This exam was interpreted at Station ID: [id number]. NOTE: For mammograms, a report in lay terms will be sent to the patient. Approximately 15% of breast malignancies will not be visualized mammographically. In the management of a palpable breast mass, a negative mammogram must not discourage biopsy of a clinically suspicious lesion. Electronically Signed By: Bipin Jean M.D. slc/:03/23/2020 11:04:39 letter sent: Followup Recommended ACR BI-RADS Category 3: Probably benign 3343F
== END ==
PROVIDERS: PCP Student in an Organized Health Care Education/Training Program; Referring Provider Student in an Organized Health Care Education/Training Program; Visit Provider Student in an Organized Health Care Education/Training Program
DX: R92.1 Mammographic calcification found on diagnostic imaging of breast (principal)
CPT/HCPCS: 77066; G0279

== ENCOUNTER → 2020-05-09 15:09 | Outpatient (CLI) | payer MEDICARE, SELFPAY ==
[2020-05-09 15:37] LABS: Add Manual Diff / Slide Review NO; Basophils Absolute Auto 0 /uL (0-100); Basophils Percent Auto 0.5 % (0-2); Eosinophils Absolute Auto 0 /uL (0-450); Eosinophils Percent Auto 0.4 % (2-4); Hematocrit 38.9 % (36-46); Hemoglobin 12.9 g/dL (12.0-16.0); Lymphocytes Absolute Auto 2100 /uL (1100-4500); Lymphocytes Percent Auto 29.8 % (25-40); Mean Corpuscular HGB Conc 33.1 % (30-36); Mean Corpuscular Hemoglobin 31.8 PG (26-34); Mean Corpuscular Volume 96.1 fL (80-100); Monocytes Absolute Auto 600 /uL (0-900); Monocytes Percent Auto 9.4 % (3-14); Neutrophils Absolute Auto 4100 /uL (1500-7000); Neutrophils Percent Auto 59.9 % (50-75); Platelet Count 208 X10^3/uL (150-400); Red Blood Cell Count 4.05 X10^6/uL (4.0-5.2); Red Cell Distribution Width 13.4 % (11.6-14.8); White Blood Cell Count 6.9 X10^3/uL (4.5-11.0)
[2020-05-09 15:49] LABS: Erythrocyte Sedimentation Rate 24 MM/HR (0-20)
[2020-05-09 16:05] LABS: Alanine Aminotransferase 26 IU/L (<35); Albumin 4.4 g/dL (3.5-5.0); Albumin Globulin Ratio 1.4 (1.0-2.8); Alkaline Phosphatase 85 U/L (38-126); Amylase 141 U/L (30-110); Aspartate Aminotransferase 30 IU/L (14-36); BUN Creatinine Ratio 25.6 (6-22); Bilirubin Total 0.7 mg/dL (0.2-1.3); Blood Urea Nitrogen 20 mg/dL (7-17); Calcium 9.5 mg/dL (8.4-10.2); Carbon Dioxide 29 mmol/L (22-32); Chloride 105 mmol/L (98-107); Estimated Glomerular Filt Rate > 60.0 mL/min (>60); Globulin 3.1 g/dL (1.7-4.1); Glucose 98 mg/dL (80-110); HEMOLYSIS < 15 (0-50); Lipase 177 U/L (23-300); Sodium 140 mmol/L (137-145); Total Protein 7.5 g/dL (6.3-8.2)
== END ==
PROVIDERS: PCP Student in an Organized Health Care Education/Training Program; Referring Provider Family Medicine; Visit Provider Family Medicine
DX: R10.9 Unspecified abdominal pain (principal)
CPT/HCPCS: 36415; 80053; 82150; 83690; 85025; 85651

== ENCOUNTER → 2020-05-11 07:39 | Outpatient (CLI) | payer MEDICARE, SELFPAY ==
--- NOTE | 2020-05-11 07:40 | DI.US.S_ITS ---
PROCEDURE: US ABDOMEN COMPLETE INDICATIONS: RUQ PAIN TECHNIQUE: Real-time scanning was performed of the abdominal and retroperitoneal organs, with image documentation. COMPARISON: [facility], US, ABDOMEN COMPLETE, 04/20/2012, 13:36. FINDINGS: Liver: Liver is normal in size and homogeneous in echotexture. Gallbladder: Gallbladder is surgically absent Biliary ducts: Intrahepatic bile ducts are non-dilated. Extrahepatic bile duct caliber measures 10 mm. Normal is 6-7 mm or less in diameter, or 10 mm or less post-cholecystectomy. Pancreas: Visualized portions of the pancreas are sonographically normal. Spleen: Spleen is normal in size and homogeneous in echotexture. Kidneys: Kidneys are normal in size and echotexture. Right kidney measures 10.8 cm long; left kidney measures 10.7 cm long. No hydronephrosis or nephrolithiasis. No solid masses. 3 simple cysts are noted in left kidney measures up to 1.8 x 1.3 x 1.7 cm in size in the upper/mid pole left kidney. Aorta: Visualized aorta is normal in caliber at less than 3 cm. Iliacs: Proximal common iliac arteries are normal in caliber at less than 2.5 cm. IVC: Intrahepatic inferior vena cava is patent. Miscellaneous: No free abdominal fluid. IMPRESSION: 1. Patient is status post cholecystectomy with common bile duct size measures in the upper limits of normal. No intrahepatic biliary ductal dilatation. No evidence of choledocholithiasis. 2. Multiple left renal cysts. No hydronephrosis. 3. Rest of the exam is unremarkable. Dictated by: Praneeth Cabrera M.D. on 05/11/2020 at 8:21 Approved by: Praneeth Cabrera M.D. on 05/11/2020 at 8:36
== END ==
PROVIDERS: PCP Student in an Organized Health Care Education/Training Program; Referring Provider Student in an Organized Health Care Education/Training Program; Visit Provider Family Medicine
DX: R10.11 Right upper quadrant pain (principal); N28.1 Cyst of kidney, acquired; Z90.49 Acquired absence of other specified parts of digestive tract
CPT/HCPCS: 76700

== ENCOUNTER → 2020-10-16 12:36 | Outpatient (CLI) | payer MEDICARE, SELFPAY ==
--- NOTE | 2020-10-16 12:37 | DI.MG.S_ITS ---
UNILATERAL RIGHT DIGITAL DIAGNOSTIC MAMMOGRAM 3D/2D SHORT-TERM FOLLOW-UP: 10/16/2020 CLINICAL: SHORT TERM FOLLOW UP. Comparison is made to exams dated: 03/23/2020 mammogram, 06/28/2019 mammogram, 12/31/2018 mammogram, and 12/11/2018 mammogram - [facility]. There are scattered fibroglandular elements in right breast. There is a stable 0.3 cm oval mass with grouped fine calcifications in the right breast at 6 o'clock middle depth. No other significant masses or calcifications are seen in the breast. IMPRESSION: PROBABLY BENIGN The stable 0.3 cm oval mass in the right breast is probably benign. A follow-up mammogram in 6 months is recommended. A follow-up mammogram in 6 months is recommended to demonstrate 2 year stability. Patient will be due for screening mammography of the contralateral breast at that time. This exam was interpreted at Station ID: [id number]. NOTE: For mammograms, a report in lay terms will be sent to the patient. Approximately 15% of breast malignancies will not be visualized mammographically. In the management of a palpable breast mass, a negative mammogram must not discourage biopsy of a clinically suspicious lesion. Electronically Signed By: Lenin dotson/:10/16/2020 13:19:45 letter sent: Followup Recommended ACR BI-RADS Category 3: Probably benign 3343F
== END ==
PROVIDERS: PCP Student in an Organized Health Care Education/Training Program; Referring Provider Student in an Organized Health Care Education/Training Program; Visit Provider Student in an Organized Health Care Education/Training Program
DX: R92.1 Mammographic calcification found on diagnostic imaging of breast (principal); N63.15 Unspecified lump in the right breast, overlapping quadrants; Z13.820 Encounter for screening for osteoporosis; M85.851 Other specified disorders of bone density and structure, right thigh; Z78.0 Asymptomatic menopausal state; Z91.89 Other specified personal risk factors, not elsewhere classified; Z82.62 Family history of osteoporosis
CPT/HCPCS: 77065; 77080; G0279

== ENCOUNTER → 2020-11-02 07:01 | Outpatient (CLI) | payer MEDICARE, SELFPAY ==
[2020-11-02 08:54] LABS: BUN Creatinine Ratio 34.7 (6-22); Blood Urea Nitrogen 26 mg/dL (7-17); Calcium 9.3 mg/dL (8.4-10.2); Carbon Dioxide 33 mmol/L (22-32); Chloride 105 mmol/L (98-107); Estimated Glomerular Filt Rate > 60.0 mL/min (>60); Glucose 102 mg/dL (80-110); HEMOLYSIS < 15 (0-50); Potassium 3.6 mmol/L (3.4-5.1); Sodium 140 mmol/L (137-145)
== END ==
PROVIDERS: PCP Student in an Organized Health Care Education/Training Program; Referring Provider Student in an Organized Health Care Education/Training Program; Visit Provider Student in an Organized Health Care Education/Training Program
DX: I10 Essential (primary) hypertension (principal); Z79.1 Long term (current) use of non-steroidal anti-inflammatories (NSAID)
CPT/HCPCS: 36415; 80048

== ENCOUNTER → 2020-11-17 16:25 | Outpatient (CLI) | payer MEDICARE, SELFPAY ==
[2020-11-17] MEDS: COVID-19 VACC #1, MRNA(MOD) 100 MCG/0.5 ML VIAL IM (16:28)
== END ==
PROVIDERS: PCP Student in an Organized Health Care Education/Training Program; Visit Provider Internal Medicine
DX: Z23 Encounter for immunization (principal)
CPT/HCPCS: 0011A; 91301

== ENCOUNTER → 2020-12-15 09:58 | Outpatient (CLI) | payer MEDICARE, SELFPAY ==
[2020-12-15] MEDS: COVID-19 VACC #2, MRNA(MOD) 100 MCG/0.5 ML VIAL IM (10:07)
== END ==
PROVIDERS: PCP Student in an Organized Health Care Education/Training Program; Visit Provider Internal Medicine
DX: Z23 Encounter for immunization (principal)
CPT/HCPCS: 0012A; 91301

== ENCOUNTER → 2021-05-17 09:41 | Outpatient (CLI) | payer MEDICARE, SELFPAY ==
--- NOTE | 2021-05-31 08:47 | PM.CARDMON.1 ---
[employer] Report Referral & Results Date Patient Seen: 05/17/21 Requesting provider: Parag Aburto Indication: Tachycardia Duration of monitoring (days): 3 Diary information: There were no patient events to review Data: Minimum heart rate identified was 59 beats per minute at 04:27 on 05/18/2021 Maximum sinus heart rate was 117 beats per minute at 13:18 on 05/17/2021 Maximum overall heart rate was 130 beats per minute at 16:26 on 05/17/2021 during a 6 beat run SVT or some other supraventricular origin Less than 1% of identified beats were ventricular or supraventricular ectopic in origin, which would classify them as rare. 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
== END ==
PROVIDERS: PCP Student in an Organized Health Care Education/Training Program; Referring Provider Student in an Organized Health Care Education/Training Program; Visit Provider Student in an Organized Health Care Education/Training Program
DX: R00.0 Tachycardia, unspecified (principal)
CPT/HCPCS: 93242; 93244

== ENCOUNTER → 2021-05-22 12:38 | Outpatient (CLI) | payer MEDICARE, SELFPAY ==
--- NOTE | 2021-05-22 | DI.MG.S_ITS ---
BILATERAL DIGITAL DIAGNOSTIC MAMMOGRAM 3D/2D: 05/22/2021 CLINICAL: Short term follow up of the right breast. Due for bilateral. Comparison is made to exams dated: 10/16/2020 mammogram, 03/23/2020 mammogram, 06/28/2019 mammogram, and 12/11/2018 mammogram - [facility]. There are scattered fibroglandular elements in both breasts. There is a stable 0.3 cm oval mass with grouped fine calcifications in the right breast at 6 o'clock middle depth. No other significant masses, calcifications, or other findings are seen in either breast. IMPRESSION: INCOMPLETE: NEEDS ADDITIONAL IMAGING EVALUATION There is a stable 0.3 cm oval mass with grouped fine calcifications in the right breast at 6 o'clock middle depth. This finding has demonstrated two years of stability and is consistent with a benign process. However, there is a probably benign oval mass seen at the 6 o'clock position that was noted on prior ultrasound examination of 12/31/2018 that may correlate with the mammographic findings. The patient could not stay for sonographic evaluation and will return as soon as possible for evaluation. If this finding remains stable then it will also have demonstrated two years of stability and the patient may be returned to screening schedule at that time. Findings and recommendations were conveyed to the patient during today's evaluation. This exam was interpreted at Station ID: [id number]. NOTE: For mammograms, a report in lay terms will be sent to the patient. Approximately 15% of breast malignancies will not be visualized mammographically. In the management of a palpable breast mass, a negative mammogram must not discourage biopsy of a clinically suspicious lesion. Electronically Signed By: Jason Wiggins M.D. aty/:05/22/2021 13:46:02 letter sent: Need Ultrasound ACR BI-RADS Category 0: Incomplete [id number]
== END ==
PROVIDERS: PCP Student in an Organized Health Care Education/Training Program; Referring Provider Student in an Organized Health Care Education/Training Program; Visit Provider Student in an Organized Health Care Education/Training Program
DX: R92.8 Other abnormal and inconclusive findings on diagnostic imaging of breast (principal); R92.1 Mammographic calcification found on diagnostic imaging of breast; N60.01 Solitary cyst of right breast; N63.15 Unspecified lump in the right breast, overlapping quadrants
CPT/HCPCS: 77066; G0279

== ENCOUNTER → 2021-05-29 11:13 | Outpatient (CLI) | payer MEDICARE, SELFPAY ==
--- NOTE | 2021-05-29 11:14 | DI.US.S_ITS ---
LIMITED ULTRASOUND OF RIGHT BREAST: 05/29/2021 CLINICAL: Patient returns today to evaluate an asymmetry in the right breast. Comparison is made to exams dated: 05/22/2021 mammogram, 10/16/2020 mammogram, 03/23/2020 mammogram, 06/28/2019 mammogram, 12/31/2018 ultrasound, and 12/31/2018 mammogram - [facility]. Color flow and real-time ultrasound of the right breast 6 o'clock region were performed. Vaz scale images of the real-time examination were reviewed. There is a stable 0.4 cm x 0.4 cm x 0.3 cm oval mass with a circumscribed margin in the right breast at 6 o'clock middle depth 2 cm from the nipple. This correlates with mammography findings. There are related calcifications. Color flow imaging demonstrates that there is no vascularity present. IMPRESSION: BENIGN There is no sonographic evidence of malignancy. Stable 0.4 cm mass in the right breast demonstrates long-term stability and is benign. A 1 year screening mammogram is recommended. Exam findings were conveyed to the patient. This exam was interpreted at Station ID: [id number]. Electronically Signed By: Bipin Jean M.D. slc/:05/29/2021 12:21:26 letter sent: Normal Exam Ultrasound BI-RADS: 2 Benign
== END ==
PROVIDERS: PCP Student in an Organized Health Care Education/Training Program; Referring Provider Student in an Organized Health Care Education/Training Program; Visit Provider Student in an Organized Health Care Education/Training Program
DX: R92.8 Other abnormal and inconclusive findings on diagnostic imaging of breast (principal); D24.1 Benign neoplasm of right breast
CPT/HCPCS: 76642

== ENCOUNTER → 2021-07-20 14:05 | Outpatient (CLI) | payer MEDICARE, SELFPAY ==
[2021-07-20 14:38] LABS: Add Manual Diff / Slide Review NO; Basophils Absolute Auto 0 /uL (0-100); Basophils Percent Auto 0.6 % (0-2); Eosinophils Absolute Auto 100 /uL (0-450); Eosinophils Percent Auto 2.1 % (2-4); Hematocrit 36.5 % (36-46); Hemoglobin 12.1 g/dL (12.0-16.0); Lymphocytes Absolute Auto 1700 /uL (1100-4500); Lymphocytes Percent Auto 27.8 % (25-40); Mean Corpuscular HGB Conc 33.2 % (30-36); Mean Corpuscular Volume 96.5 fL (80-100); Monocytes Absolute Auto 700 /uL (0-900); Monocytes Percent Auto 11.3 % (3-14); Neutrophils Absolute Auto 3600 /uL (1500-7000); Neutrophils Percent Auto 58.2 % (50-75); Platelet Count 255 X10^3/uL (150-400); Red Blood Cell Count 3.78 X10^6/uL (4.0-5.2); Red Cell Distribution Width 13.5 % (11.6-14.8); White Blood Cell Count 6.2 X10^3/uL (4.5-11.0)
[2021-07-20 14:49] LABS: Alanine Aminotransferase 16 IU/L (<35); Albumin 4.1 g/dL (3.5-5.0); Albumin Globulin Ratio 1.2 (1.0-2.8); Alkaline Phosphatase 78 U/L (38-126); Aspartate Aminotransferase 25 IU/L (14-36); BUN Creatinine Ratio 24.4 (6-22); Bilirubin Total 0.3 mg/dL (0.2-1.3); Blood Urea Nitrogen 20 mg/dL (7-17); Calcium 9.6 mg/dL (8.4-10.2); Carbon Dioxide 31 mmol/L (22-32); Chloride 105 mmol/L (98-107); Estimated Glomerular Filt Rate > 60.0 mL/min (>60); Globulin 3.3 g/dL (1.7-4.1); Glucose 100 mg/dL (80-110); HEMOLYSIS < 15 (0-50); Sodium 141 mmol/L (137-145); Total Protein 7.4 g/dL (6.3-8.2)
[2021-07-20 15:19] LABS: Thyroid Stimulating Hormone 0.326 uIU/mL (0.47-4.68)
== END ==
PROVIDERS: PCP Student in an Organized Health Care Education/Training Program; Referring Provider Internal Medicine Cardiovascular Disease; Visit Provider Internal Medicine Cardiovascular Disease
DX: R00.0 Tachycardia, unspecified (principal)
CPT/HCPCS: 36415; 80053; 84443; 85025

== ENCOUNTER → 2021-08-10 14:53 | Outpatient (CLI) | payer MEDICARE, SELFPAY ==
[2021-08-10] MEDS: COVID-19 VACC #3, MRNA(MOD) 50 MCG/0.25 ML VIAL IM (15:04)
== END ==
PROVIDERS: PCP Student in an Organized Health Care Education/Training Program; Visit Provider Internal Medicine
DX: Z23 Encounter for immunization (principal)
CPT/HCPCS: 0013A; 91301

== ENCOUNTER → 2022-02-12 11:37 | Outpatient (CLI) | payer MEDICARE, SELFPAY ==
[2022-02-12 14:20] LABS: TSH w/ Reflex to FT4 0.11 uIU/mL (0.47-4.68)
[2022-02-12 14:45] LABS: Free T4, Direct Thyroxine 1.31 ng/dL (0.78-2.19)
== END ==
PROVIDERS: PCP Student in an Organized Health Care Education/Training Program; Referring Provider Student in an Organized Health Care Education/Training Program; Visit Provider Student in an Organized Health Care Education/Training Program
DX: E05.90 Thyrotoxicosis, unspecified without thyrotoxic crisis or storm (principal)
CPT/HCPCS: 36415; 84439; 84443

== ENCOUNTER → 2022-04-18 09:55 | Outpatient (CLI) | payer MEDICARE, SELFPAY ==
[2022-04-18 12:34] LABS: Free T3, Triiodothyronine Free 2.72 pg/mL (2.77-5.27); Free T4, Direct Thyroxine 1.06 ng/dL (0.78-2.19)
[2022-04-18 12:48] LABS: Thyroid Stimulating Hormone 0.031 uIU/mL (0.47-4.68)
[2022-04-19 08:34] LABS: Thyroid Peroxidase Antibodies 29 IU/mL (0-34)
[2022-04-21 07:24] LABS: Thyroid Stimulating Immunoglob < 0.10 IU/L (0.00-0.55)
== END ==
PROVIDERS: PCP Student in an Organized Health Care Education/Training Program; Referring Provider Student in an Organized Health Care Education/Training Program; Visit Provider Student in an Organized Health Care Education/Training Program
DX: E05.90 Thyrotoxicosis, unspecified without thyrotoxic crisis or storm (principal)
CPT/HCPCS: 36415; 84439; 84443; 84445; 84481; 86376

== ENCOUNTER → 2022-06-03 07:51 | Outpatient (CLI) | payer MEDICARE, SELFPAY ==
--- NOTE | 2022-06-03 | DI.MG.S_ITS ---
BILATERAL DIGITAL SCREENING MAMMOGRAM 3D/2D WITH CAD: 06/03/2022 CLINICAL: Routine screening. Comparison is made to exams dated: 03/23/2020 mammogram, 12/11/2018 mammogram, and 04/18/2017 mammogram - [facility]. There are scattered areas of fibroglandular density in both breasts (category b / 25%-50% glandular tissue). Current study was also evaluated with a Computer Aided Detection (CAD) system. No significant masses, calcifications, or other findings are seen in either breast. There has been no significant interval change. IMPRESSION: NEGATIVE There is no mammographic evidence of malignancy. A 1 year screening mammogram is recommended. Based on the Tyrer Cuzick model (a risk assessment model) the patient's lifetime risk is 0.7% and her 10 year risk is 0.0%. According to the ACR, ACS, and NCCN guidelines, an annual breast MRI exam along with mammogram is recommended if the patient's lifetime risk is 20% or greater. This exam was interpreted at Station ID: [id number]. NOTE: For mammograms, a report in lay terms will be sent to the patient. Approximately 15% of breast malignancies will not be visualized mammographically. In the management of a palpable breast mass, a negative mammogram must not discourage biopsy of a clinically suspicious lesion. Electronically Signed By: Jason hughes/tan:06/03/2022 08:08:44 letter sent: Normal Exam ACR BI-RADS Category 1: Negative 3341F
== END ==
PROVIDERS: PCP Student in an Organized Health Care Education/Training Program; Referring Provider Student in an Organized Health Care Education/Training Program; Visit Provider Student in an Organized Health Care Education/Training Program
DX: Z12.31 Encounter for screening mammogram for malignant neoplasm of breast (principal)
CPT/HCPCS: 77063; 77067

== ENCOUNTER → 2022-08-02 10:15 | Outpatient (CLI) | payer MEDICARE, SELFPAY ==
[2022-08-02 12:05] LABS: Follicle Stimulating Hormone 31.7 mIU/mL; Luteinizing Hormone 7.13 mIU/mL
[2022-08-02 12:12] LABS: Free T3, Triiodothyronine Free 3.27 pg/mL (2.77-5.27); Free T4, Direct Thyroxine 1.51 ng/dL (0.78-2.19); Prolactin 2.3 ng/mL (3.0-18.6)
[2022-08-02 12:51] LABS: Thyroid Stimulating Hormone < 0.015 uIU/mL (0.47-4.68)
== END ==
PROVIDERS: PCP Student in an Organized Health Care Education/Training Program; Referring Provider Student in an Organized Health Care Education/Training Program; Visit Provider Student in an Organized Health Care Education/Training Program
DX: E03.8 Other specified hypothyroidism (principal); E23.7 Disorder of pituitary gland, unspecified
CPT/HCPCS: 36415; 83001; 83002; 84146; 84439; 84443; 84481

== ENCOUNTER → 2023-05-21 11:07 | Outpatient (CLI) | payer MEDICARE, SELFPAY ==
--- NOTE | 2023-05-21 11:08 | DI.RAD.S_ITS ---
PROCEDURE: XR SHOULDER LT MIN 2V INDICATIONS: left shoulder pain, no trauma TECHNIQUE: 3 views of the shoulder were acquired. COMPARISON: None. FINDINGS: Bones: No fractures or dislocations. 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 No suspicious bony lesions. Visualized ribs appear intact. Soft tissues: No suspicious soft tissue calcifications. IMPRESSION: No acute shoulder fracture or dislocation. 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 Dictated by: Praneeth Cabrera M.D. on 05/21/2023 at 12:46 Approved by: Praneeth Cabrera M.D. on 05/21/2023 at 12:46
== END ==
PROVIDERS: PCP Internal Medicine; Referring Provider Internal Medicine; Visit Provider Internal Medicine
DX: M75.82 Other shoulder lesions, left shoulder (principal); M19.012 Primary osteoarthritis, left shoulder
CPT/HCPCS: 73030

== ENCOUNTER → 2023-06-19 12:49 | Outpatient (CLI) | payer MEDICARE, SELFPAY ==
--- NOTE | 2023-06-19 13:00 | DI.CT.S_ITS ---
PROCEDURE: CT HEAD/BRAIN WO CON INDICATIONS: cognitive impairment/dementia TECHNIQUE: Noncontrast 4.5 mm thick angled axial sections acquired from the foramen magnum to the vertex, with coronal and sagittal reformats. For radiation dose reduction, the following was used: automated exposure control, adjustment of mA and/or kV according to patient size. COMPARISON: [facility], CT, HEAD WITHOUT CONTRAST, 11/30/2016, 10:54. FINDINGS: Image quality: Excellent. CSF spaces: Basal cisterns are patent. No extra-axial fluid collections. Ventricles are normal in size and shape. Brain: No midline shift. No intracranial masses or hemorrhage. Vaz-white matter interface is normal. Age-appropriate cerebral and cerebellar volume loss with multifocal white matter chronic ischemic change noted. Atherosclerotic calcification noted associated with cavernous segments of both internal carotid arteries. Skull and face: Calvarium and visualized facial bones are intact, without suspicious lesions. Sinuses: Visualized sinuses and mastoids are clear. IMPRESSION: Atrophy and chronic ischemic change without intracranial hemorrhage or mass effect. Approved by: Gabino Joiner M.D. on 06/19/2023 at 12:43
== END ==
PROVIDERS: Family Provider Internal Medicine; PCP Internal Medicine; Referring Provider Internal Medicine; Visit Provider Internal Medicine
DX: G31.84 Mild cognitive impairment of uncertain or unknown etiology (principal)
CPT/HCPCS: 70450

== ENCOUNTER 2023-06-22 19:49 | Emergency (ER) | payer MEDICARE, SELFPAY ==
[2023-06-22] VITALS (7 sets, daily range): BP systolic 122–165; BP diastolic 57–77; PULSE 87–105; RESP 16–18; TEMP 36.4; O2SAT 96–100; BMI 23.8
--- NOTE | 2023-06-22 20:04 | DI.CT.S_ITS ---
PROCEDURE: CT CERVICAL SPINE WO CON INDICATIONS: Fall. TECHNIQUE: Noncontrast 3 mm thick sections acquired from the skull base to the T4 level. Sagittal and coronal reformats were then constructed. For radiation dose reduction, the following was used: automated exposure control, adjustment of mA and/or kV according to patient size. COMPARISON: None. FINDINGS: Image quality: Good Bones: [id number] degenerative changes, no acute vertebral body height loss. No traumatic subluxation. Soft tissues: Vascular calcifications are present. No prevertebral soft tissue swelling. IMPRESSION: [id number]-[id number] degenerative changes. No acute fracture or traumatic subluxation of the cervical spine. If there is high concern for further derangement, consider MRI evaluation. Dictated by: Cem Sarabia M.D. on 06/22/2023 at 21:02 Approved by: Cem Sarabia M.D. on 06/22/2023 at 21:04
--- NOTE | 2023-06-22 20:04 | DI.RAD.S_ITS ---
PROCEDURE: XR HIP W PEL IF DONE RT 2V INDICATIONS: RT hip pain s/p fall. TECHNIQUE: 2 views of the hip were acquired. COMPARISON: None. FINDINGS: Bones: Mild bilateral degenerative changes of the hips. No displaced fracture or dislocation Soft tissues: Moderate to large fecal loading. No suspicious calcifications. IMPRESSION: Mild bilateral degenerative changes. If there is high concern for occult injury, consider repeat radiography or cross-sectional imaging. Dictated by: Cem Sarabia M.D. on 06/22/2023 at 21:22 Approved by: Cem Sarabia M.D. on 06/22/2023 at 21:23
--- NOTE | 2023-06-22 20:04 | DI.CT.S_ITS ---
PROCEDURE: CT HEAD/BRAIN WO CON INDICATIONS: Fall; right posterior head injury. TECHNIQUE: Noncontrast 4.5 mm thick angled axial sections acquired from the foramen magnum to the vertex, with coronal and sagittal reformats. For radiation dose reduction, the following was used: automated exposure control, adjustment of mA and/or kV according to patient size. COMPARISON: [facility], CT, CT HEAD/BRAIN WO CON, 06/19/2023, 13:00. FINDINGS: Image quality: Excellent CSF spaces: Basal cisterns are patent. Lateral ventricles are symmetric. Volume: Vascular calcifications. 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 Volume loss is present. These findings are [id number] Brain: No intracranial hemorrhage. Vaz-white differentiation is grossly maintained. Craniofacial structures: Right scalp contusion. IMPRESSION: No acute intracranial abnormality. Right scalp contusion is present. Dictated by: Cem Sarabia M.D. on 06/22/2023 at 21:00 Approved by: Cem Sarabia M.D. on 06/22/2023 at 21:02
--- NOTE | 2023-06-22 20:06 | ED_ITS ---
HPI - Fall General Chief Complaint: Fall Stated Complaint: GLF/ hit head and hip Time Seen by Provider: 06/22/23 19:58 Source: patient and family Mode of arrival: Ambulatory History of Present Illness HPI Narrative: Patient is a kvng 83-year-old female history of inappropriate sinus tachycardia on metoprolol, chronic left shoulder pain arthritis presents after a mechanical fall by daughter. Reports that she missed stepping off the curb falling and hitting the right posterior part of her head. Not on antiplatelet or anticoagulation medication. No loss of consciousness. No numbness tingling or weakness. She also ended on her right hip. She is able to ambulate but her hip does hurt. She has chronic left arm pain blood pressure cuff is bothering her. No chest pain or other injury. Daughter reports that she does not fall n ormally. She actually had head CT done last week for early signs cognitive impairment. Related Data Home Medications Medication Instructions Recorded Confirmed cholecalciferol (vitamin D3) 50 2,000 unit PO DAILY ##0 07/10/11 06/09/23 mcg (2,000 unit) capsule (Vitamin D3) fexofenadine-pseudoephedrine ER 1 tab PO Q DAY ##0 07/10/11 06/09/23 180 mg-240 mg tablet,ext.release 24 hr (Senia-D 24 Hour) Women's One Daily 1 tab PO DAILY 03/09/18 06/09/23 digestive enzymes 1 tab PO DAILY 03/10/23 06/09/23 ipratropium bromide 42 mcg (0.06 2 spray intranasal TID 03/10/23 06/09/23 %) nasal spray propylene glycol (PF) 0.6 % eye 1 drp ophthalmic (eye) DAILY 03/10/23 06/09/23 drops (Systane Complete PF) vitamins A,C,V-yxda-lbvbpy 2,148 2 tab PO BID 03/10/23 06/09/23 mcg-113 mg-45 mg-17.4 mg tablet (PreserVision AREDS) hydrocortisone 2.5 % topical cream 1 applic topical BID PRN 05/21/23 06/09/23 CBD Gummies 1 ea PO DAILY 06/09/23 06/09/23 CBD Oil 1 ea topical DAILY PRN 06/09/23 06/09/23 ascorbic acid-vitamin E-biotin 1 tab PO DAILY 06/09/23 06/09/23 [Hair, Skin, Nails with Biotin] sucralfate 1 gram tablet 1 g PO DAILY PRN 06/09/23 06/09/23 Previous Rx's Medication Instructions Recorded omeprazole 40 mg capsule,delayed 40 mg PO Q DAY #90 caps 03/31/20 release celecoxib 200 mg capsule (Celebrex) 200 mg PO DAILY #90 caps 06/09/23 metoprolol succinate 25 mg 25 mg PO BID #180 tabs 06/09/23 tablet,extended release 24 hr ondansetron 4 mg disintegrating 4 mg PO Q8H PRN nausea and 06/22/23 tablet vomiting #20 tabs Allergies Allergy/AdvReac Type Severity Reaction Status Date / Time No Known Drug Allergies Allergy Verified 06/09/23 14:10 Review of Systems Review of Systems ROS Unobtainable: All systems reviewed & are unremarkable except as noted in HPI and below Patient History Medical History Allergic rhinitis Ankle pain (2012) Cataract (2013) Chicken pox (1945) Chronic back pain (1975) Eczematous dermatitis Foot pain (2012) GERD (gastroesophageal reflux disease) (1999) GERD without esophagitis Hayfever (1949) Hemorrhoids (1979) IBS (irritable bowel syndrome) (1998) Inappropriate sinus tachycardia Measles (1946) Medicare annual wellness visit, initial Mild cognitive impairment Mixed hyperlipidemia Mumps (1947) Neck pain (1975) Osteoarthritis (1984) Primary osteoarthritis involving multiple joints Shoulder pain (1984) Tendonitis of left rotator cuff Thyroid function test abnormal Surgical History Anesthesia History of arthroplasty of right knee (2010) Status post cholecystectomy (2013) Status post hysterectomy (1992) Family History Father Congestive heart failure Stroke Grandmother Cancer Sister Pulmonary hypertension Heart disease Lung disease Mother No problems noted. Social History details: (José) Smoking Status: Never smoker Smoking Status: Never smoker alcohol intake frequency: 0-2 drinks per day Substance Use Type: does not use Exam Initial Vital Signs Initial Vital Signs: Vital Signs Temperature 97.6 F 06/22/23 19:50 Pulse Rate 105 H 06/22/23 19:50 Respiratory Rate 16 06/22/23 19:50 Blood Pressure 165/77 H 06/22/23 19:50 Pulse Oximetry 97 06/22/23 19:50 Oxygen Delivery Method Room Air 06/22/23 19:50 GENERAL: Alert pleasant well-appearing 83-year-old female HEENT: Head right posterior head contusion there was bleeding but no bleeding now. Neck is supple.,EOMI, pupils reactive, face symmetric, moist mucous membranes NECK supple, no vertebral step-off CARDIOVASCULAR: Regular rate and rhythm without murmurs, rubs or gallops. RESPIRATORY: Breath sounds equal bilaterally, no wheezes rales or rhonchi. ABDOMEN: Soft, nontender. Normoactive bowel sounds all 4 quadrants. No guarding or rebound. BACK: No vertebral tenderness no step-off EXTREMITIES: Normal range of motion, no clubbing or edema. Neurovascularly intact. Right hip pain to palpation no pain with internal external rotation able to flex and extend at hip. Knee is stable. NEUROLOGICAL: Alert and oriented x4.Normal gait and speech. [employer] strength equal bilaterally SKIN: Warm, dry, no laceration, no petechiae, no rashes or lesions. Scores GCS [place] coma scale eye opening: Spontaneous Chadd coma scale verbal response: Orientated Chadd coma scale motor response: Obey commands Chadd coma scale total score: 15 Course Orders Ordered: Discontinued Medications Ibuprofen (Ibuprofen 400 Mg Tablet) 400 mg PO NOW ONE Stop: 06/22/23 20:58 Last Admin: 06/22/23 21:02 Dose: 400 mg Documented By: SOL Ondansetron HCl (Ondansetron 4 Mg/2 Ml Inj) 4 mg IV NOW ONE Stop: 06/22/23 20:58 Last Admin: 06/22/23 21:02 Dose: 4 mg Documented By: SOL Ondansetron HCl (Ondansetron 4 Mg Odt Prepack) 1 bottle MISC SEEINSTR ONE Stop: 06/22/23 21:42 Last Admin: 06/22/23 21:56 Dose: 1 bottle Documented By: DAVEY Vital Signs Vital signs: Vital Signs - 8 hr 06/22/23 21:58 Pulse Rate 88 Respiratory Rate 18 Blood Pressure 122/57 L Pulse Oximetry 96 Oxygen Delivery Method Room Air MDM - Fall Lab Data 06/22/23 20:00 06/22/23 20:00 Labs: Lab Results 06/22/23 06/22/23 Range/Units 20:00 20:00 WBC 7.5 (4.5-11.0) X10^3/uL RBC 3.96 L (4.0-5.2) X10^6/uL Hgb 13.0 (12.0-16.0) g/dL Hct 38.4 (36-46) % MCV 97.0 (80-100) fL MCH 32.8 (26-34) PG MCHC 33.8 (30-36) % RDW 13.6 (11.6-14.8) % Plt Count 242 (150-400) X10^3/uL Neut % (Auto) 50.8 (50-75) % Lymph % (Auto) 35.2 (25-40) % [place] % (Auto) 11.2 (3-14) % Eos % (Auto) 2.0 (2-4) % Baso % (Auto) 0.8 (0-2) % Neut # (Auto) 3800 (4056-5895) /uL Lymph # (Auto) 2700 (8807-4058) /uL [place] # (Auto) 800 (0-900) /uL Eos # (Auto) 200 (0-450) /uL Baso # (Auto) 100 (0-100) /uL Sodium 142 (137-145) mmol/L Potassium 3.9 (3.4-5.1) mmol/L Chloride 107 (98-107) mmol/L Carbon Dioxide 28 (22-32) mmol/L BUN 26 H (7-17) mg/dL Creatinine 0.90 (0.52-1.04) mg/dL Estimated GFR > 60 (>60) mL/min BUN/Creatinine Ratio 28.9 H (6-22) Glucose 116 H (80-110) mg/dL Calcium 9.6 (8.4-10.2) mg/dL Total Bilirubin 0.4 (0.2-1.3) mg/dL AST 30 (14-36) IU/L ALT 26 (<35) IU/L Alkaline Phosphatase 87 (38-126) U/L Total Protein 7.9 (6.3-8.2) g/dL Albumin 4.3 (3.5-5.0) g/dL Globulin 3.6 (1.7-4.1) g/dL Albumin/Globulin Ratio 1.2 (1.0-2.8) Imaging Data CT scan - head: Radiologist's Impression: PROCEDURE: XR CHEST 1V INDICATIONS: Sternal chest pain. TECHNIQUE: One view of the chest was acquired. COMPARISON: [facility], , XR CHEST 1V, 03/19/2020, 17:53. FINDINGS: Surgical changes and devices: None. Lungs and pleura: Single-view portable radiograph with low lung volumes. No consolidation or pleural effusion. Mediastinum: Mediastinal contours appear normal. Heart size is normal. Bones and chest wall: No suspicious bony lesions. Overlying soft tissues appear unremarkable. IMPRESSION: Portable single view limited radiograph. No acute abnormality is seen. Dictated by: Cem Sarabia M.D. on 06/22/2023 at 21:31 CT - cervical spine: Radiologist's Impression: PROCEDURE:? CT CERVICAL SPINE WO CON ? INDICATIONS:? Fall. ? TECHNIQUE:? Noncontrast 3 mm thick sections acquired from the skull base to the T4 level.? Sagittal and coronal reformats were then constructed.? For radiation dose reduction, the following was used:? automated exposure control, adjustment of mA and/or kV according to patient size.? ? COMPARISON:? None. ? FINDINGS:? Image quality:? Good ? Bones:? [id number]-jm-obyqhyoz degenerative changes, no acute vertebral body height loss.? No traumatic subluxation. ? Soft tissues:? Vascular calcifications are present.? No prevertebral soft tissue swelling. ? ? IMPRESSION:? Rrff-oe-nrztzcpu degenerative changes.? No acute fracture or traumatic subluxation of the cervical spine.? If there is high concern for further derangement, consider MRI evaluation. ? Dictated by: Cem Sarabia M.D. on 06/22/2023 at 21:02 ? Extremity x-ray #1: Radiologist's Impression: PROCEDURE:? XR HIP W PEL IF DONE RT 2V ? INDICATIONS:? RT hip pain s/p fall. ? TECHNIQUE:? 2 views of the hip were acquired.? ? COMPARISON:? None. ? FINDINGS:? ? Bones:? Mild bilateral degenerative changes of the hips.? No displaced fracture or dislocation ? Soft tissues:? Moderate to large fecal loading.? No suspicious calcifications. ? IMPRESSION:? Mild bilateral degenerative changes.? If there is high concern for occult injury, consider repeat radiography or cross-sectional imaging. ? ? Dictated by: Cem Sarabia M.D. on 06/22/2023 at 21:22 ? ? PROCEDURE:? XR HIP W PEL IF DONE RT 2V ? INDICATIONS:? RT hip pain s/p fall. ? TECHNIQUE:? 2 views of the hip were acquired.? ? COMPARISON:? None. ? FINDINGS:? ? Bones:? Mild bilateral degenerative changes of the hips.? No displaced fracture or dislocation ? Soft tissues:? Moderate to large fecal loading.? No suspicious calcifications. ? IMPRESSION:? Mild bilateral degenerative changes.? If there is high concern for occult injury, consider repeat radiography or cross-sectional imaging. ? ? Dictated by: Cem Sarabia M.D. on 06/22/2023 at 21:22 ? ? PROCEDURE:? XR HIP W PEL IF DONE RT 2V ? INDICATIONS:? RT hip pain s/p fall. ? TECHNIQUE:? 2 views of the hip were acquired.? ? COMPARISON:? None. ? FINDINGS:? ? Bones:? Mild bilateral degenerative changes of the hips.? No displaced fracture or dislocation ? Soft tissues:? Moderate to large fecal loading.? No suspicious calcifications. ? IMPRESSION:? Mild bilateral degenerative changes.? If there is high concern for occult injury, consider repeat radiography or cross-sectional imaging. ? ? Dictated by: Cem Sarabia M.D. on 06/22/2023 at 21:22 ? ? PROCEDURE:? XR HIP W PEL IF DONE RT 2V ? INDICATIONS:? RT hip pain s/p fall. ? TECHNIQUE:? 2 views of the hip were acquired.? ? COMPARISON:? None. ? FINDINGS:? ? Bones:? Mild bilateral degenerative changes of the hips.? No displaced fracture or dislocation ? Soft tissues:? Moderate to large fecal loading.? No suspicious calcifications. ? IMPRESSION:? Mild bilateral degenerative changes.? If there is high concern for occult injury, consider repeat radiography or cross-sectional imaging. ? ? Dictated by: Cem Sarabia M.D. on 06/22/2023 at 21:22 ? ? MDM Narrative Medical decision making narrative: Patient is a healthy kvng 83-year-old female who presents after a mechanical fall. It sounds as though she stepped down the curb wrong landing on her right hip and hitting the right side of her head. Head CT cervical spine CT and x-ray of hip are negative. She ambulated in here. She has been feeling well she has no fever chills nausea vomiting. Blood work has been reviewed there is no evidence of anemia leukocytosis electrolyte abnormality or LARRY. After the wound is cleaned there is no area that can be repaired. At this time patient does not meet admission criteria she is close outpatient follow-up. Discharge Plan Departure Patient Disposition: Home Clinical Impression: Fall, Closed head injury Instructions: How to Prevent Falls, Closed Head Injury Activity Restrictions/Additional Instructions: *You have been diagnosed with closed head injury *What to do: It was a pleasure to meet you. Take good care *Continue to take medications as directed Zofran 4 mg every 8 hours if needed for nausea vomiting *Follow up with your primary care provider in 2-3 days or call [phone] *Return to ER if you should have increasing pain persistent vomiting or any new, worsening or concerning symptoms Prescriptions: New ondansetron 4 mg tablet,disintegrating 4 mg PO Q8H PRN (Reason: nausea and vomiting) Qty: 20 0RF No Action fexofenadine-pseudoephedrine [Senia-D 24 Hour] 180-240 mg Tablet Extended Release 24 Hr 1 tab PO Q DAY Qty: 0 cholecalciferol (vitamin D3) [Vitamin D3] 2,000 unit Capsule 2,000 unit PO DAILY Qty: 0 Systane Complete PF 0.6 % drops 1 drp ophthalmic (eye) DAILY PreserVision AREDS 2,148 mcg-113 mg-45 mg-17.4mg tablet 2 tab PO BID Rx Instructions: administer with AM and PM meals ipratropium bromide 42 mcg (0.06 %) spray,non-aerosol 2 spray intranasal TID Rx Instructions: administer into each nostril digestive enzymes Tablet 1 tab PO DAILY omeprazole 40 mg capsule,delayed release(DR/EC) 40 mg PO Q DAY Qty: 90 3RF sucralfate 1 gram tablet 1 g PO DAILY PRN ascorbic acid-vitamin E-biotin [Hair, Skin, Nails with Biotin] 1 tab PO DAILY CBD Gummies 1 ea PO DAILY CBD Oil 1 ea topical DAILY PRN celecoxib [Celebrex] 200 mg capsule 200 mg PO DAILY Qty: 90 3RF metoprolol succinate 25 mg tablet extended release 24 hr 25 mg PO BID Qty: 180 3RF hydrocortisone 2.5 % cream 1 applic topical BID PRN Women's One Daily 1 tab PO DAILY Referrals: Carlo Clinton MD [Primary Care Provider] - Stand Alone Forms: Patient Portal/API
[2023-06-22 20:17] LABS: Add Manual Diff / Slide Review NO; Basophils Absolute Auto 100 /uL (0-100); Basophils Percent Auto 0.8 % (0-2); Eosinophils Absolute Auto 200 /uL (0-450); Hematocrit 38.4 % (36-46); Lymphocytes Absolute Auto 2700 /uL (1100-4500); Lymphocytes Percent Auto 35.2 % (25-40); Mean Corpuscular HGB Conc 33.8 % (30-36); Mean Corpuscular Hemoglobin 32.8 PG (26-34); Monocytes Absolute Auto 800 /uL (0-900); Monocytes Percent Auto 11.2 % (3-14); Neutrophils Absolute Auto 3800 /uL (1500-7000); Neutrophils Percent Auto 50.8 % (50-75); Platelet Count 242 X10^3/uL (150-400); Red Blood Cell Count 3.96 X10^6/uL (4.0-5.2); Red Cell Distribution Width 13.6 % (11.6-14.8); White Blood Cell Count 7.5 X10^3/uL (4.5-11.0)
[2023-06-22 20:24] LABS: Alanine Aminotransferase 26 IU/L (<35); Albumin 4.3 g/dL (3.5-5.0); Albumin Globulin Ratio 1.2 (1.0-2.8); Alkaline Phosphatase 87 U/L (38-126); Aspartate Aminotransferase 30 IU/L (14-36); BUN Creatinine Ratio 28.9 (6-22); Bilirubin Total 0.4 mg/dL (0.2-1.3); Blood Urea Nitrogen 26 mg/dL (7-17); Calcium 9.6 mg/dL (8.4-10.2); Carbon Dioxide 28 mmol/L (22-32); Chloride 107 mmol/L (98-107); Estimated Glomerular Filt Rate > 60 mL/min (>60); Globulin 3.6 g/dL (1.7-4.1); Glucose 116 mg/dL (80-110); HEMOLYSIS < 15 (0-50); Potassium 3.9 mmol/L (3.4-5.1); Sodium 142 mmol/L (137-145); Total Protein 7.9 g/dL (6.3-8.2)
[2023-06-22] MEDS: ONDANSETRON 4 MG/2 ML INJ IV (21:02)
[2023-06-22] MEDS: IBUPROFEN 400 MG TABLET PO (21:02)
[2023-06-22] MEDS: ONDANSETRON 4 MG ODT PREPACK 1 BOTTLE MISC (21:56)
== END 2023-06-22 21:59 | disposition home or self-care (01) ==
PROVIDERS: Emergency Provider Emergency Medicine; Family Provider Internal Medicine; PCP Internal Medicine
DX: S09.90XA Unspecified injury of head, initial encounter (principal); R07.89 Other chest pain; W10.9XXA Fall (on) (from) unspecified stairs and steps, initial encounter
CPT/HCPCS: 36415; 70450; 72125; 73502; 80053; 85025; 96374; 99284; J2405

== ENCOUNTER → 2023-06-24 07:11 | Outpatient (CLI) | payer MEDICARE, SELFPAY ==
[2023-06-24 08:16] LABS: Hematocrit 36.5 % (36-46); Hemoglobin 12.1 g/dL (12.0-16.0); Mean Corpuscular HGB Conc 33.2 % (30-36); Mean Corpuscular Hemoglobin 32.7 PG (26-34); Mean Corpuscular Volume 98.4 fL (80-100); Platelet Count 203 X10^3/uL (150-400); Red Blood Cell Count 3.71 X10^6/uL (4.0-5.2); Red Cell Distribution Width 13.4 % (11.6-14.8); White Blood Cell Count 6.3 X10^3/uL (4.5-11.0)
[2023-06-24 08:28] LABS: Alanine Aminotransferase 23 IU/L (<35); Albumin Globulin Ratio 1.2 (1.0-2.8); Alkaline Phosphatase 80 U/L (38-126); Aspartate Aminotransferase 28 IU/L (14-36); BUN Creatinine Ratio 27.7 (6-22); Bilirubin Total 0.6 mg/dL (0.2-1.3); Blood Urea Nitrogen 18 mg/dL (7-17); Calcium 9.5 mg/dL (8.4-10.2); Carbon Dioxide 29 mmol/L (22-32); Chloride 107 mmol/L (98-107); Cholesterol 213 mg/dL (140-199); Estimated Glomerular Filt Rate > 60 mL/min (>60); Globulin 3.4 g/dL (1.7-4.1); Glucose 98 mg/dL (80-110); HDL Cholesterol 62 mg/dL (40-60); HEMOLYSIS < 15 (0-50); LDL Cholesterol Calculated 120 mg/dL (<100); Sodium 142 mmol/L (137-145); Total Protein 7.4 g/dL (6.3-8.2); Triglycerides 155 mg/dL (35-150)
[2023-06-24 09:00] LABS: TSH w/ Reflex to FT4 1.64 uIU/mL (0.47-4.68)
[2023-06-24 09:16] LABS: Vitamin B12 813 pg/mL (239-931)
== END ==
PROVIDERS: Family Provider Internal Medicine; PCP Internal Medicine; Referring Provider Internal Medicine; Visit Provider Internal Medicine
DX: E78.2 Mixed hyperlipidemia (principal); R00.0 Tachycardia, unspecified; R94.6 Abnormal results of thyroid function studies
CPT/HCPCS: 36415; 80053; 80061; 82607; 84443; 85027

== ENCOUNTER → 2023-08-05 | Outpatient (CLI) | payer MEDICARE, SELFPAY ==
--- NOTE | 2023-08-05 | DI.MG.S_ITS ---
BILATERAL DIGITAL SCREENING MAMMOGRAM 3D/2D WITH CAD: 08/05/2023 CLINICAL: Routine screening. Comparison is made to exams dated: 06/03/2022 mammogram, 05/22/2021 mammogram, 10/16/2020 mammogram, and 03/23/2020 mammogram - [facility]. There are scattered areas of fibroglandular density in both breasts (category b / 25%-50% glandular tissue). Current study was also evaluated with a Computer Aided Detection (CAD) system. No significant masses, calcifications, or other findings are seen in either breast. There has been no significant interval change. IMPRESSION: NEGATIVE There is no mammographic evidence of malignancy. A 1 year screening mammogram is recommended. Based on the Tyrer Cuzick model (a risk assessment model) the patient's lifetime risk is 0.5% and her 10 year risk is 0.0%. According to the ACR, ACS, and NCCN guidelines, an annual breast MRI exam along with mammogram is recommended if the patient's lifetime risk is 20% or greater. This exam was interpreted at Station ID: [id number]. NOTE: For mammograms, a report in lay terms will be sent to the patient. Approximately 15% of breast malignancies will not be visualized mammographically. In the management of a palpable breast mass, a negative mammogram must not discourage biopsy of a clinically suspicious lesion. Electronically Signed By: Lewis sutton/tan:08/18/2023 11:42:51 letter sent: Normal Exam ACR BI-RADS Category 1: Negative [id number]
== END ==
LOC: MAMMO 12:31
PROVIDERS: Family Provider Internal Medicine; PCP Internal Medicine; Referring Provider Internal Medicine; Visit Provider Internal Medicine
DX: Z12.31 Encounter for screening mammogram for malignant neoplasm of breast (principal)
CPT/HCPCS: 77063; 77067

== ENCOUNTER 2023-09-23 11:15 | Outpatient (RCR) | payer MEDICARE, SELFPAY ==
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
--- NOTE | 2023-08-04 18:04 | PT.OPPOC ---
Addendum entered and electronically signed by Elena Neal, PT 08/05/23 09:23: PT direct supervision and direction to PT student. Original Note: Physical, Occupational & Speech Therapy At [facility] Current Diagnoses Polyosteoarthritis, unspecified (08/04/23) Muscle weakness (generalized) (08/04/23) Other shoulder lesions, left shoulder (08/04/23) Abnormal posture (08/04/23) Visit Care Team Role Provider Type Carlo Clinton MD Attending Provider Physician Family Provider Primary Care Provider Referring Provider Specialty: Internal Medicine Address: [address] [place] [address], [employer] Email: [email or web address] Plan Of Care PT-OP-T Assessment and Plan Start: 07/31/23 08:57 Freq: Status: Active Protocol: Document 08/04/23 10:40 BS (Rec: 08/04/23 13:26 BS [id number]) Physical Therapy Assessment Rehab Potential Rehabilitation Potential Good Evaluation Complexity Number of Personal Factors/Comorbidities 3 or More Number of Body Systems Impaired 4 or More Clinical Presentation at Evaluation Evolving Impairments Impairments Functional Activities, Functional Mobility,Pain, Posture,ROM Goals ROM Impairment All ROM in L shoulder limited d/t pain Short Term Goal (STG) Pt will inc flex & abd AROM to >95 degrees without inc in pain. STG Duration 09/08/23 Long-Term Goal (LTG) Pt will increase flex & abd AROm to > 100degrees, IR to waist line of pants, and ER to > 45 degrees without inc in pain in order to allow for completion of functional daily tasks without limitation d/t pain. LTG Duration 10/13/23 ADLs Impairment pt reported 10/10 pain in L shoulder at its worst Short Term Goal (STG) Pt will report no more than 6/ 10 pain in L shoulder during daily activities. STG Duration 09/08/23 Long-Term Goal (LTG) Pt will report no more than 3/ 10 pain in L shoulder during functional activities and ADLs in order to inc independence with necessary daily tasks. LTG Duration 10/13/23 Quick Dash Impairment QD score of 70.5 Short Term Goal (STG) Pt will score < 50 on quick dash to show improvement in ability to complete daily functional activities without limitation d/t L shoulder. STG Duration 09/08/23 Long-Term Goal (LTG) Pt will score < 30 on quick dash to show dec limitation d/ t L shoulder pain in daily functional activities. LTG Duration 10/13/23 Assessment Summary Assessment Pt presented to PT today with c/o of L shoulder pain following an appontment with doctor in which the shoulder was moved around into an uncomortable range and has been in significant pain ever since. At baseline pt has significant OA throughout many joints in body including B shoulders and fx was ruled out following xray. Pt has thoracic kyphosis, rounded shoulders, and fwd head posture. Pt was significant limited in all AROM throughout L shoulder had empty end feels during PROM assessment d /t pain limitations and significant muscle guarding. Pt did have some kind of clunk occur multiple times in shld during attempted PROM assessment. Pt is unable to complete daily tasks such as washing, doing her hair, getting dressed, and carrying purse d/t pain and ROM limits in L shoulder. Pt will benefit from skilled PT to work on posture, strength, and ROM in order to improve ability to complete functional mobility & activities. Physical Therapy Plan Frequency and Duration Frequency of Treatment 2x/Week Duration of treatment (weeks) 10 Plan of Care Start Date 08/04/23 Plan of Care End Date 10/13/23 Therapeutic Interventions Therapeutic Interventions Balance Training,Coordination Training,Gait Training,Home Exercise Program,Joint Mobilizations,Manual Therapy, Neuromuscular Re-education, Patient/Caregiver Education, Self-Care/Home Management,Soft Tissue Mobilization,Taping, Therapeutic Activities, Therapeutic Exercises Modalities Cold Pack/Ice Massage,Electric Stimulation,Hot Packs, Infrared Therapy,Ultrasound Next Visit Focus/Plan Next Note Type Treatment Note Next Visit Plan Manual: scap, shld, & AC/SC mobs, assess ST gentle strength- scap squeezes , chin tucks, isometrics for shld introduce AAROM for shoulders- dowel/pulleys Plan of Care Dates Plan of Care Start Date 08/04/23 Plan of Care End Date 10/13/23 Electronically Signed by: Silvia Mullins 08/04/23 [id number] If you are in agreement with this Plan of Care, please return a signed and dated copy. I have reviewed this Plan of Care and certify that the skilled therapy services above are required to meet the patient?s needs. Physician Signature Date Printed Name and Credentials Clinical Instructor Signature Printed Name and Credentials
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
== END 2023-09-26 08:36 | disposition home or self-care (01) ==
LOC: PHYS 11:15
PROVIDERS: Family Provider Internal Medicine; PCP Internal Medicine; Referring Provider Internal Medicine; Visit Provider Internal Medicine
DX: M75.82 Other shoulder lesions, left shoulder (principal); M15.9 Polyosteoarthritis, unspecified; M62.81 Muscle weakness (generalized); R29.3 Abnormal posture
CPT/HCPCS: 97110; 97140; 97162

== ENCOUNTER → 2024-07-20 11:54 | Outpatient (CLI) | payer MEDICARE, SELFPAY ==
[2024-07-20 12:37] LABS: Hemoglobin 11.9 g/dL (12.0-16.0); Mean Corpuscular HGB Conc 33.9 % (30-36); Mean Corpuscular Hemoglobin 32.9 PG (26-34); Mean Corpuscular Volume 96.9 fL (80-100); Platelet Count 208 X10^3/uL (150-400); Red Blood Cell Count 3.61 X10^6/uL (4.0-5.2); Red Cell Distribution Width 13.3 % (11.6-14.8)
[2024-07-20 13:03] LABS: Alanine Aminotransferase 35 IU/L (<35); Albumin 3.9 g/dL (3.5-5.0); Albumin Globulin Ratio 1.4 (1.0-2.8); Alkaline Phosphatase 90 U/L (38-126); Aspartate Aminotransferase 34 IU/L (14-36); BUN Creatinine Ratio 27.5 (6-22); Bilirubin Total 0.4 mg/dL (0.2-1.3); Blood Urea Nitrogen 22 mg/dL (7-17); Calcium 9.6 mg/dL (8.4-10.2); Carbon Dioxide 28 mmol/L (22-32); Chloride 107 mmol/L (98-107); Estimated Glomerular Filt Rate > 60 mL/min (>60); Globulin 2.8 g/dL (1.7-4.1); Glucose 100 mg/dL (80-110); HEMOLYSIS < 15 (0-50); Potassium 4.4 mmol/L (3.4-5.1); Sodium 140 mmol/L (137-145); Total Protein 6.7 g/dL (6.3-8.2)
[2024-07-20 13:33] LABS: TSH w/ Reflex to FT4 1.25 uIU/mL (0.47-4.68)
== END ==
PROVIDERS: Family Provider Internal Medicine; PCP Internal Medicine; Referring Provider Internal Medicine; Visit Provider Internal Medicine
DX: R94.6 Abnormal results of thyroid function studies (principal); E78.2 Mixed hyperlipidemia; G30.1 Alzheimer's disease with late onset; F02.A0 Dementia in other diseases classified elsewhere, mild, without behavioral disturbance, psychotic disturbance, mood disturbance, and anxiety; L30.9 Dermatitis, unspecified; M19.90 Unspecified osteoarthritis, unspecified site; I47.11 Inappropriate sinus tachycardia, so stated; K21.9 Gastro-esophageal reflux disease without esophagitis; J30.89 Other allergic rhinitis
CPT/HCPCS: 36415; 80053; 84443; 85027

== ENCOUNTER → 2024-08-09 14:26 | Outpatient (CLI) | payer MEDICARE, SELFPAY ==
--- NOTE | 2024-08-09 | DI.MG.S_ITS ---
BILATERAL DIGITAL SCREENING MAMMOGRAM 3D/2D WITH CAD: 08/09/2024 CLINICAL: Routine screening. Comparison is made to exams dated: 08/05/2023 mammogram, 06/03/2022 mammogram, and 05/22/2021 mammogram - [facility]. There are scattered areas of fibroglandular density (category b / 25%-50% glandular tissue). Current study was also evaluated with a Computer Aided Detection (CAD) system. No significant masses, calcifications, or other findings are seen in either breast. There has been no significant interval change. IMPRESSION: NEGATIVE There is no mammographic evidence of malignancy. A 1 year screening mammogram is recommended. Based on the Tyrer Cuzick model (a risk assessment model) the patient's lifetime risk is 0.4% and her 10 year risk is 0.0%. According to the ACR, ACS, and NCCN guidelines, an annual breast MRI exam along with mammogram is recommended if the patient's lifetime risk is 20% or greater. This exam was interpreted at Station ID: [id number]. NOTE: For mammograms, a report in lay terms will be sent to the patient. Approximately 15% of breast malignancies will not be visualized mammographically. In the management of a palpable breast mass, a negative mammogram must not discourage biopsy of a clinically suspicious lesion. Electronically Signed By: Jason hughes/tan:08/09/2024 17:46:08 letter sent: Normal Exam ACR BI-RADS Category 1: Negative
== END ==
PROVIDERS: Family Provider Internal Medicine; PCP Internal Medicine; Referring Provider Internal Medicine; Visit Provider Internal Medicine
DX: Z12.31 Encounter for screening mammogram for malignant neoplasm of breast (principal)
CPT/HCPCS: 77063; 77067

== ENCOUNTER → 2024-09-29 09:53 | Outpatient (CLI) | payer MEDICARE, SELFPAY ==
[2024-09-29 10:24] LABS: Estimated Glomerular Filt Rate > 60 mL/min (>60)
--- NOTE | 2024-09-29 11:03 | DI.CT.S_ITS ---
PROCEDURE: CT ABDOMEN PELVIS W CON INDICATIONS: WEIGHT LOSS ABN,HEMORRHOIDS TECHNIQUE: After the administration of intravenous contrast, axial sections acquired from the lung bases to the pubic symphysis. Coronal and sagittal reformats were performed. For radiation dose reduction, the following was used: automated exposure control, adjustment of mA and/or kV according to patient size. COMPARISON: None. FINDINGS: Image quality: Diagnostic. Lower Chest: Right lower lobe pulmonary nodule measuring 0.5 cm, (5/1). Left lower lobe pulmonary nodule measuring 0.4 cm, (5/14). ABDOMEN: Liver: Focus of heterogeneous enhancement at the right dome of the liver. This has the appearance of a portal/hepatic veins shunt. Gallbladder: Absent. Biliary ducts: No biliary dilation. Pancreas: No ductal dilation. Spleen: Size is within normal limits. Adrenal Glands: No adrenal nodules. Kidneys and Ureters: No hydronephrosis. Nonobstructing calculus at the left kidney measuring 0.2 cm. Bilateral renal cortical thinning. No solid mass. No complex renal cystic lesion which requires follow up. Stomach and Bowel: Normal colonic caliber, without significant wall thickening. Normal appendix. Diverticulosis. No diverticulitis. Peritoneum: No abnormal intraperitoneal fluid. No free air. Ventral Wall: No significant ventral hernia. Abdominal Nodes: No retroperitoneal or mesenteric adenopathy by size criteria. Vessels: Aorta and inferior vena cava are normal in size. PELVIS: Pelvic Organs: Uterus is absent. Left ovarian cyst measuring 4.8 cm, (2/113). Bladder: No bladder wall thickening, accounting for underdistention. Pelvic Nodes: No enlarged lymph nodes. Miscellaneous: No inguinal hernias are seen. Bones: No aggressive osseous abnormality. Scoliosis. Multilevel DDD. IMPRESSION: 1. No mass or adenopathy demonstrated. No free fluid. No diverticulitis. 2. 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 3. Bilateral renal cortical thinning. Post cholecystectomy. Dictated by: Bipin Jean M.D. on 09/29/2024 at 17:08 Approved by: Bipin Jean M.D. on 09/29/2024 at 17:21
== END ==
LOC: CT 09:54
PROVIDERS: Radiology Diagnostic Radiology; Family Provider Internal Medicine; PCP Internal Medicine; Referring Provider Internal Medicine Gastroenterology; Visit Provider Internal Medicine Gastroenterology
DX: R91.8 Other nonspecific abnormal finding of lung field (principal); N83.202 Unspecified ovarian cyst, left side; K64.8 Other hemorrhoids; K57.90 Diverticulosis of intestine, part unspecified, without perforation or abscess without bleeding; N20.0 Calculus of kidney; R63.4 Abnormal weight loss; M54.9 Dorsalgia, unspecified; G89.29 Other chronic pain; Z90.49 Acquired absence of other specified parts of digestive tract; Z90.710 Acquired absence of both cervix and uterus
CPT/HCPCS: 36415; 74177; 82565; Q9967

== ENCOUNTER → 2025-08-30 12:55 | Outpatient (CLI) | payer MEDICARE, SELFPAY ==
--- NOTE | 2025-08-30 12:57 | DI.MG.S_ITS ---
MM screening mammo BI: 08/30/2025. BI-RADS: 1 CLINICAL: 85-year old female for bilateral screening mammogram. Tyrer-Cuzick lifetime risk of 0.2%. No personal or first-degree family history of breast cancer. PRIOR EXAMS: 08/09/2024, 08/05/2023, 06/03/2022, 05/29/2021, 05/22/2021, 10/16/2020, 03/23/2020, 06/28/2019, 12/31/2018, 12/11/2018. MAMMOGRAPHY TECHNIQUE: 2D and 3D (tomosynthesis) digital mammographic views obtained, with additional images as needed for full coverage. Current study was also evaluated with a Computer Aided Detection (CAD) system. DENSITY C. The breasts are heterogeneously dense, which may obscure small masses. MAMMOGRAPHY FINDINGS Bilateral: No suspicious mass, asymmetry, microcalcification, or other abnormality seen. IMPRESSION: * No evidence of malignancy. RECOMMENDATIONS Bilateral * Annual screening mammography. OVERALL ASSESSMENT CATEGORY BI-RADS-1: Negative. The [employer] recommends annual screening mammography beginning at age 40 for women with average risk of breast cancer. ELECTRONICALLY SIGNED: Shannan Saleem M.D. on 08/30/2025 at 04:56:19 PM PT Interpreting Station ID: [id number]
== END ==
PROVIDERS: Family Provider Internal Medicine; PCP Internal Medicine; Referring Provider Internal Medicine; Visit Provider Internal Medicine
DX: Z12.31 Encounter for screening mammogram for malignant neoplasm of breast (principal); R92.333 Mammographic heterogeneous density, bilateral breasts
CPT/HCPCS: 77063; 77067